=== PATIENT | female | born 2000 | race Caucasian/White ===

== ENCOUNTER 2022-05-10 23:47 | Emergency (ER) | payer OTHER, SELFPAY ==
[2022-05-11] VITALS (12 sets, daily range): BP systolic 109–124; BP diastolic 55–78; PULSE 41–61; RESP 16–18; TEMP 36.9; O2SAT 95–100; BMI 18.9
[2022-05-11] MEDS: 0.9 % SODIUM CHLORIDE 1000 ml 1,000 ML IV ×2 (00:20→00:55)
--- NOTE | 2022-05-11 00:28 | CRLHL7_ITS ---
For Patients: As a result of the Century Cures Act, medical imaging exams and procedure reports are released immediately into your electronic medical record. You may view this report before your referring provider. If you have questions, please contact your health care provider. INDICATION: [id number]. TECHNIQUE: Chest 1 views. COMPARISON: None. FINDINGS: Lungs: Normal lung volume. No consolidation. The tracheobronchial tree and hilar structures are unremarkable. Pleura: No pleural effusion or pneumothorax. Heart and Mediastinum: Normal heart size. The great vessels of the thorax are unremarkable. Bones: Sternotomy wires. IMPRESSION: No consolidation. Dictated by Andrew Acosta MD @ 05/11/2022 1:01:07 AM (Electronically Signed)
--- NOTE | 2022-05-11 00:31 | ED.WEAKNESS ---
HPI - Weakness General Chief complaint: Unspecified Complaint, Adult Stated complaint: Low heart rate, passing out Time Seen by Provider: 05/11/22 00:23 History of Present Illness HPI Narrative: Pt is a 21 year old [place] student who presents with bradycardia and heavy menses. Pt states that her current menses is particularly heavy. She states that she is not . No fever or chills. Pt has a history of POTS and take salt tablets. Pt has not had syncope recently. Pt has a long history of bradycardia and her pulse is generally in the 50's. Tonight it is in the 40's. No chest pain. Orthopnea or PND. Pain that she is having with her menses is in the low midline of the anterior pelvis. No other abd pain. Pt is not having any neurological symptoms. Pt has been out of her Lexapro for the past 5 days and feels that some of her symptoms may be related to withdrawal. Related Data Home Medications Medication Instructions Recorded Confirmed escitalopram oxalate 5 mg tablet 5 mg PO DAILY 05/11/22 05/11/22 Previous Rx's Medication Instructions Recorded escitalopram oxalate 5 mg tablet 5 mg PO DAILY Anxiety #30 tabs 05/11/22 (Lexapro) Allergies Allergy/AdvReac Type Severity Reaction Status Date / Time No Known Drug Allergies Allergy Verified 05/11/22 00:12 Review of Systems Status of ROS: Reports: 10 or more systems reviewed and unremarkable except as noted in History and below [facility] Medical History Anxiety Mitral regurgitation POTS (postural orthostatic tachycardia syndrome) Surgical History H/O congenital atrial septal defect (ASD) repair Social History Smoking Status: Never smoker How often do you have a drink containing alcohol: never AUDIT-C Alcohol total score: 0 Non-prescribed substance use: denies use Exam Narrative: Exam Narrative: EXAM GENERAL: Patient appears comfortable and well. EYES: No scleral icterus. ENT: Tympanic membranes and oropharynx normal. THYROID: no thyroid nodules or thyromegaly. LYMPH: No supraclavicular or cervical lymphadenopathy. SKIN: Visible skin seen during exam normal or with benign process only. EXT: No dependent lower extremity pedal edema. HEART: Bradycardic with distant heart tones LUNGS: Clear to auscultation bilaterally with no crackles or wheezes. ABD: Soft, non tender, non distended. PSYCH: Good eye contact, speech is not pressured. Const: Vital Signs, click to edit/add: Vital Signs - 24 hr 05/11/22 00:08 05/11/22 00:17 05/11/22 00:32 Temperature 98.5 F Pulse Rate 41 L 42 L Pulse Rate [Right Pulse Oximeter] 48 L Respiratory Rate 18 16 16 Blood Pressure 109/57 L 121/55 L Blood Pressure [Ri ght Upper Arm] 120/58 L Pulse Oximetry 95 95 100 Oxygen Delivery Me thod Room Air 05/11/22 00:49 05/11/22 01:02 05/11/22 01:17 Temperature Pulse Rate 49 L 53 L 54 L Pulse Rate [Right Pulse Oximeter] Respiratory Rate 16 16 16 Blood Pressure 113/60 115/70 121/58 L Blood Pressure [Ri ght Upper Arm] Pulse Oximetry 99 100 99 Oxygen Delivery Me thod 05/11/22 01:32 Temperature Pulse Rate 61 Pulse Rate [Right Pulse Oximeter] Respiratory Rate 16 Blood Pressure 121/56 L Blood Pressure [Ri ght Upper Arm] Pulse Oximetry 99 Oxygen Delivery Me thod Course Course Hospital Course: Pt seen and examined. EKG shows RBBB with Bradycardia upon my review. Troponin, D dimer, CBC, CMP, Chest X ray ordered. Vital Signs Vital signs: Initial Vital Signs Temperature 98.5 F 05/11/22 00:08 Temperature Source Temporal Artery Scan 05/11/22 00:08 Pulse Rate 48 L 05/11/22 00:08 Respiratory Rate 18 05/11/22 00:08 Blood Pressure 120/58 L 05/11/22 00:08 Blood Pressure Mean 78 05/11/22 00:08 Blood Pressure Position Supine 05/11/22 00:08 Pulse Oximetry 95 05/11/22 00:08 Oxygen Delivery Method 05/11/22 00:08 Vital Signs Temperature 98.5 F 05/11/22 00:08 Pulse Rate 48 L 05/11/22 00:08 Respiratory Rate 18 05/11/22 00:08 Blood Pressure 120/58 L 05/11/22 00:08 Pulse Oximetry 95 05/11/22 00:08 Oxygen Delivery Method 05/11/22 00:08 Temperature 98.5 F 05/11/22 00:08 Pulse Rate 61 05/11/22 01:32 Respiratory Rate 16 05/11/22 01:32 Blood Pressure 121/56 L 05/11/22 01:32 Pulse Oximetry 99 05/11/22 01:32 Oxygen Delivery Method 05/11/22 00:08 MDM - Weakness MDM Narrative Medical decision making narrative: Pt is a 21 year old with a complex cardiac history as well as POTS who comes in with worsening bradycardia. Pt is having her mensus and her pulse was in the 70's. Work up unremarkable. Pt given 2 liters of normal saline with marked improvement in her pulse rate. Pt now feeling well. She will be in contact with her EP Bi Developer. I also gave her my card if I can be of further assistance. Discharged to home. Differential Diagnosis Differential diagnosis: Likely acute myocardial infarction, anemia, hypoglycemia, hypothyroidism, rhabdomyolysis, sepsis and dehydration Lab Data Labs: Lab Results 05/11/22 05/11/22 05/11/22 Range/Units 00:02 00:02 00:02 WBC 7.26 (4.50-11.00) K/uL RBC 4.72 (4.00-5.20) m/uL Hgb 13.5 (12.0-16.0) gm/dL Hct 40.4 (33.0-51.0) % MCV 86 (80-100) fL MCH 29 (26-34) pg MCHC 33 (32-36) gm/dL RDW Coeff of Kurt 11.6 (11.5-15.5) % Plt Count 245 (140-440) K/uL Neut % (Auto) 62.6 (42.0-72.0) % Lymph % (Auto) 23.0 (20-44) % [place] % (Auto) 9.9 (0.0-11.0) % Eos % (Auto) 4.0 (0.0-7.0) % Baso % (Auto) 0.4 (0.0-3.0) % Neut # (Auto) 4.54 (1.7-7.0) K/uL Lymph # (Auto) 1.67 (0.90-2.90) K/uL [place] # (Auto) 0.70 (0.00-0.90) K/UL Eos # (Auto) 0.29 (0.00-0.50) K/uL Baso # (Auto) 0.03 (0.00-0.30) K/uL D-Dimer Quant (PE/DVT) < 0.27 (0.00-0.50) ug/ml Sodium 138 (135-149) mmol/L Potassium 3.3 L (3.6-5.1) mmol/L Chloride 109 (96-114) mmol/L Carbon Dioxide 22 (20-32) mmol/L BUN 12 (5-24) mg/dL Creatinine 0.6 (0.6-1.2) mg/dL Estimated Creat Clear 118.79 Estimated GFR 133 ml/min Glucose 101 (60-115) mg/dL Calcium 8.6 L (8.7-10.8) mg/dL Total Bilirubin 0.6 (0.1-1.5) mg/dL AST 22 (12-35) U/L ALT 16 (4-35) U/L Alkaline Phosphatase 54 (40-150) U/L Troponin I < 0.01 L (0.01-0.04) ng/mL Total Protein 7.0 (6.0-8.3) g/dL Albumin 4.2 (3.3-5.0) g/dL Amylase 104 H (18-89) U/L HCG, Qual (Negative) SARS-CoV-2 (PCR) (Negative) Influenza Type A (PCR) (Negative) Influenza Type B (PCR) (Negative) POC Troponin I (0.01-0.04) ng/ml 05/11/22 05/11/22 05/11/22 Range/Units 00:02 00:02 00:38 WBC (4.50-11.00) K/uL RBC (4.00-5.20) m/uL Hgb (12.0-16.0) gm/dL Hct (33.0-51.0) % MCV (80-100) fL MCH (26-34) pg MCHC (32-36) gm/dL RDW Coeff of Kurt (11.5-15.5) % Plt Count (140-440) K/uL Neut % (Auto) (42.0-72.0) % Lymph % (Auto) (20-44) % [place] % (Auto) (0.0-11.0) % Eos % (Auto) (0.0-7.0) % Baso % (Auto) (0.0-3.0) % Neut # (Auto) (1.7-7.0) K/uL Lymph # (Auto) (0.90-2.90) K/uL [place] # (Auto) (0.00-0.90) K/UL Eos # (Auto) (0.00-0.50) K/uL Baso # (Auto) (0.00-0.30) K/uL D-Dimer Quant (PE/DVT) (0.00-0.50) ug/ml Sodium (135-149) mmol/L Potassium (3.6-5.1) mmol/L Chloride (96-114) mmol/L Carbon Dioxide (20-32) mmol/L BUN (5-24) mg/dL Creatinine (0.6-1.2) mg/dL Estimated Creat Clear Estimated GFR ml/min Glucose (60-115) mg/dL Calcium (8.7-10.8) mg/dL Total Bilirubin (0.1-1.5) mg/dL AST (12-35) U/L ALT (4-35) U/L Alkaline Phosphatase (40-150) U/L Troponin I (0.01-0.04) ng/mL Total Protein (6.0-8.3) g/dL Albumin (3.3-5.0) g/dL Amylase (18-89) U/L HCG, Qual Negative (Negative) SARS-CoV-2 (PCR) Negative SARS-CoV-2 (Negative) Influenza Type A (PCR) Negative PCR FLU A (Negative) Influenza Type B (PCR) Negative PCR FLU B (Negative) POC Troponin I 0.00 L (0.01-0.04) ng/ml Discharge Plan Discharge Clinical Impression: Bradycardia Patient Disposition: Home, Self-Care Condition: Stable Instructions: Bradycardia (ED) Additional Instructions: Continue current medications Lexapro sent in with refills to [facility] Follow up by phone with EP Bi Developer Activity Level: No Restrictions Discharge Diet: Regular Prescriptions: New escitalopram oxalate [Lexapro] 5 mg tablet 5 mg PO DAILY Qty: 30 2RF No Action escitalopram oxalate 5 mg tablet 5 mg PO DAILY Label Comments: TAKE 1 TABLET BY MOUTH EVERY DAY Stand Alone Forms: [employer] Info Instructions
[2022-05-11 00:54] LABS: Albumin* 4.2 g/dL (3.3-5.0); Chloride* 109 mmol/L (96-114); Potassium* 3.3 mmol/L (3.6-5.1); Sodium* 138 mmol/L (135-149)
[2022-05-11 00:57] LABS: Alanine Aminotransferase* 16 U/L (4-35); Alkaline Phosphatase* 54 U/L (40-150); Amylase* 104 U/L (18-89); Aspartate Amino Transferase* 22 U/L (12-35); Bilirubin Total* 0.6 mg/dL (0.1-1.5); Blood Urea Nitrogen* 12 mg/dL (5-24); Carbon Dioxide* 22 mmol/L (20-32); Creatinine* 0.6 mg/dL (0.6-1.2); Est. Creatinine Clearance* 118.79; Estimated Glomerular Filt Rate 133 ml/min; Glucose* 101 mg/dL (60-115)
[2022-05-11 00:58] LABS: Calcium* 8.6 mg/dL (8.7-10.8)
[2022-05-11 01:00] LABS: D Dimer Quantitative* < 0.27 ug/ml (0.00-0.50)
[2022-05-11 01:13] LABS: Troponin I* < 0.01 ng/mL (0.01-0.04)
[2022-05-11 01:21] LABS: HCG Qualitative Serum* Negative (Negative)
[2022-05-11 01:30] LABS: Basophils Absolute Auto 0.03 K/uL (0.00-0.30); Basophils Percent Auto 0.4 % (0.0-3.0); Eosinophils Absolute Auto 0.29 K/uL (0.00-0.50); Hematocrit 40.4 % (33.0-51.0); Hemoglobin* 13.5 gm/dL (12.0-16.0); Immature Granulocytes Abs Auto 0.01 K/uL (0.00-0.30); Immature Granulocytes Pct Auto 0.1 %; Lymphocytes Absolute Auto 1.67 K/uL (0.90-2.90); Mean Corpuscular HGB Conc 33 gm/dL (32-36); Mean Corpuscular Hemoglobin 29 pg (26-34); Mean Corpuscular Volume 86 fL (80-100); Monocytes Percent Auto 9.9 % (0.0-11.0); Neutrophils Absolute Auto 4.54 K/uL (1.7-7.0); Neutrophils Percent Auto 62.6 % (42.0-72.0); Platelet Count* 245 K/uL (140-440); RDW Coefficient of Variation % 11.6 % (11.5-15.5); Red Blood Count 4.72 m/uL (4.00-5.20); White Blood Count* 7.26 K/uL (4.50-11.00)
[2022-05-11 01:33] LABS: Slide Review Reflex No
[2022-05-11 01:39] LABS: PCR FLU A Negative PCR FLU A (Negative); PCR FLU B Negative PCR FLU B (Negative)
[2022-05-11 01:47] LABS: SARS PCR* Negative SARS-CoV-2 (Negative)
== END 2022-05-11 02:33 | disposition home or self-care (01) ==
PROVIDERS: Emergency Provider Internal Medicine
DX: R00.1 Bradycardia, unspecified (principal)
CPT/HCPCS: 36415; 71045; 80053; 82150; 84484; 84703; 85025; 85379; 87631; 93005; 94761; 99283; 99284; 99285; J7030

== ENCOUNTER 2024-07-10 22:48 | Emergency (ER) | payer OTHER, SELFPAY ==
[2024-07-10 22:59] VITALS: BP 134/87; PULSE 61; RESP 16; TEMP 37.5; O2SAT 96; BMI 20.1
[2024-07-11 00:29] LABS: Amphetamine Screen Urine Negative (Negative); Barbiturate Screen Urine Negative (Negative); Benzodiazepines Screen Urine Negative (Negative); Cannabinoid Screen Urine Negative (Negative); Cocaine Screen Urine Negative (Negative); Methadone Screen Urine Negative (Negative); Methamphetamines Screen Urine Negative (Negative); Opiate Screen Urine Negative (Negative); Oxycodone Screen Urine Negative (Negative); Phencyclidine Screen Urine Negative (Negative); Tricyclic Antidepressant Urine Negative (Negative)
[2024-07-11 00:31] LABS: Basophils Absolute Auto 0.03 K/uL (0.00-0.30); Basophils Percent Auto 0.6 % (0.0-3.0); Eosinophils Absolute Auto 0.21 K/uL (0.00-0.50); Eosinophils Percent Auto 4.1 % (0.0-7.0); Hematocrit 41.1 % (33.0-51.0); Hemoglobin* 13.7 gm/dL (12.0-16.0); Lymphocytes Absolute Auto 1.46 K/uL (0.90-2.90); Lymphocytes Percent Auto 28.3 % (20-44); Mean Corpuscular HGB Conc 33 gm/dL (32-36); Mean Corpuscular Hemoglobin 28 pg (26-34); Mean Corpuscular Volume 85 fL (80-100); Monocytes Percent Auto 10.3 % (0.0-11.0); Neutrophils Absolute Auto 2.92 K/uL (1.7-7.0); Neutrophils Percent Auto 56.7 % (42.0-72.0); Platelet Count* 228 K/uL (140-440); RDW Coefficient of Variation % 12.2 % (11.5-15.5); Red Blood Count 4.83 m/uL (4.00-5.20); White Blood Count* 5.15 K/uL (4.50-11.00)
[2024-07-11 00:38] LABS: Ur HCG Qualitative* Negative (Negative)
[2024-07-11 00:55] LABS: Slide Review Reflex No
[2024-07-11 00:58] LABS: Albumin* 4.7 g/dL (3.3-5.0); Chloride* 105 mmol/L (96-114)
[2024-07-11 00:59] LABS: Potassium* 3.1 mmol/L (3.6-5.1); Sodium* 140 mmol/L (135-149)
[2024-07-11 01:01] LABS: Anion Gap 11 mEq/L (7-15); Blood Urea Nitrogen* 24 mg/dL (5-24); Carbon Dioxide* 24 mmol/L (20-32); Creatinine* 0.9 mg/dL (0.5-1.5); Est. Creatinine Clearance* 82.14; Estimated Glomerular Filt Rate 93 ml/min
[2024-07-11 01:02] LABS: Alanine Aminotransferase* 14 U/L (4-35); Alkaline Phosphatase* 61 U/L (40-150); Aspartate Amino Transferase* 26 U/L (12-35); Bilirubin Direct* 0.3 mg/dL (0.0-0.5); Bilirubin Total* 0.6 mg/dL (0.1-1.5); Calcium* 9.3 mg/dL (8.4-10.6); Glucose* 129 mg/dL (60-115); Total Protein* 7.3 g/dL (6.0-8.3)
[2024-07-11 01:07] LABS: Acetaminophen* < 10.0 ug/mL (10.0-30.0); Ethanol* < 0.01 % (0.01-0.03); Salicylate* < 1.0 mg/dL (1.0-10)
--- NOTE | 2024-07-11 01:14 | ED_ITS ---
HPI - General Adult General Chief complaint: Psychiatric Problem/Disorder Stated complaint: mental health Time Seen by Provider: 07/11/24 01:15 History of Present Illness HPI narrative: patient with hx of bipolar type 1 and depression and is currently being assessed for bpd. for the past 2 weeks has been having increasing stress and anxiety. states she is feeling overwhelmed, states I dont recognize pictures of myself, nothing feels real, this doesnt feel real states she has been having episodes of feeling like she cant trust herself to not self herself, hx of self-harm behaviors of cutting herself . tearful in triage and states I feel like I am not here, I look at pictures of myself, but I feel like i am not in my right body states she self-harms typically without the intent to kill herself but last night while cutting herself had thoughts of cutting wrists in an attempt to kill herself . patient sees psych at health services at [facility]. hx of being hospitalized for mental health with manic episodes in February 2023 and again while studying abroad in 2023 hospitalized for depression. [facility] student, from [facility] [place] originally. 24-year-old young woman presenting to the emergency department as recommended by friend following increasing self-harm behavior. Seems particularly bothered by feeling that things do not seem real. Says she does not really recognize her family and startles herself looking at herself in the mirror. Is just worried about what might be going on whether not might be related to her bipolar disorder. She is asking for help to understand what is going on. Becomes tearful with this concern. Also has episodes where she has intense desire to get out of her own skin somehow to tear the skin off of her body and be destructive. Denies hallucinations. No substance use. On exam I am noting larger deeper cuts on her left thigh from few days ago have scabbed over. None of the ones done within the last 30 hours or so will need repair; all being intradermal and only a couple slightly gapping. She does how ever indicate that she has had thoughts of cutting herself more or more deeply with possibly killing herself in this manner. Has been sleeping well and just feels like she really needs to sleep now. Asking for a particular blanket she had brought with her. Sees a psychologist/therapist at her college here locally every other week. Related Data Home Medications ?Medication ?Instructions ?Recorded ?Confirmed hydroxyzine HCl 10 mg tablet 5 - 10 mg PO Q8H PRN anxiety 07/10/24 07/11/24 lamotrigine 150 mg tablet 150 mg PO DAILY 07/10/24 07/10/24 lamotrigine 25 mg tablet 50 mg PO DAILY 07/10/24 07/10/24 lurasidone 60 mg tablet 60 mg PO QPM 07/10/24 07/10/24 Allergies Allergy/AdvReac Type Severity Reaction Status Date / Time No Known Drug Allergies Allergy Verified 05/11/22 00:12 Review of Systems Status of ROS: Reports: 6 or more systems reviewed and unremarkable except as noted in History and below [facility] Medical History Bradycardia ?R00.1 - Bradycardia, unspecified (ICD-10) 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 tricuspid insufficiency (ICD-10) 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 (ICD-10) Complete right bundle branch block ?I45.10 - Unspecified right bundle-branch block (ICD-10) Depression ?F32.A - Depression, unspecified (ICD-10) Anxiety ?F41.9 - Anxiety disorder, unspecified (ICD-10) Mitral regurgitation ?I34.0 - Nonrheumatic mitral (valve) insufficiency (ICD-10) POTS (postural orthostatic tachycardia syndrome) ?G90.A - Postural orthostatic tachycardia syndrome [POTS] (ICD-10) Surgical History H/O congenital atrial septal defect (ASD) repair ?Z87.74 - Personal history of (corrected) congenital malformations of heart and circulatory system (ICD-10) Social History Smoking Status: Never smoker How often do you have a drink containing alcohol: never AUDIT-C Alcohol total score: 0 Non-prescribed substance use: denies use Exam Narrative: Exam Narrative: Pleasant. Wearing paper scrubs. Is tearful during our conversation. Appears quite tired. Breathing easily. Mood is sad and affect congruent. Speech isn't pressured or slurred. Cranial nerves 2-12 intact. At times asking if maybe she can just go home but not making move to do so. Heart in regular rate and rhythm with 2/6 systolic murmur. Extensive fresh cuts as noted above over bilateral forearms and bilateral thighs. Old scarring at the left volar wrist consistent with old marvin. Const: Vital Signs, click to edit/add: Vital Signs - 24 hr 07/10/24 22:59 07/11/24 03:00 07/11/24 03:00 Temperature 99.5 F 99 F Pulse Rate [Pulse Oximeter] 61 70 Respiratory Rate 16 16 Blood Pressure [Ri ght Upper Arm] 134/87 115/54 L Pulse Oximetry 96 98 Oxygen Delivery Me thod Room Air Room Air 07/11/24 06:58 07/11/24 08:50 Temperature 98.1 F Pulse Rate [Pulse Oximeter] 149 H 50 L Respiratory Rate 16 Blood Pressure [Ri ght Upper Arm] 103/51 L Pulse Oximetry 91 98 Oxygen Delivery Me thod Room Air Room Air Documenting provider has reviewed patient's vital signs: yes Course Vital Signs Vital signs: Initial Vital Signs Temperature 99.5 F 07/10/24 22:59 Temperature Source Temporal Artery Scan 07/10/24 22:59 Pulse Rate 61 07/10/24 22:59 Respiratory Rate 16 07/10/24 22:59 Blood Pressure 134/87 07/10/24 22:59 Blood Pressure Mean 102 07/10/24 22:59 Blood Pressure Position Sitting 07/10/24 22:59 Pulse Oximetry 96 07/10/24 22:59 Oxygen Delivery Method Room Air 07/10/24 22:59 Vital Signs Temperature 99.5 F 07/10/24 22:59 Pulse Rate 61 07/10/24 22:59 Respiratory Rate 16 07/10/24 22:59 Blood Pressure 134/87 07/10/24 22:59 Pulse Oximetry 96 07/10/24 22:59 Oxygen Delivery Method Room Air 07/10/24 22:59 Temperature 98.1 F 07/11/24 08:50 Pulse Rate 50 L 07/11/24 08:50 Respiratory Rate 16 07/11/24 08:50 Blood Pressure 103/51 L 07/11/24 08:50 Pulse Oximetry 98 07/11/24 08:50 Oxygen Delivery Method Room Air 07/11/24 08:50 Medications Administered Medications: Discontinued Medications Generic Name Dose Route Start Last Admin Trade Name Freq PRN Reason Stop Dose Admin Lurasidone 60 Mg 60 mg 07/11/24 01:12 07/11/24 01:20 PO 07/11/24 01:13 60 mg ONCE ONE Administration Medical Decision Making MDM Narrative Medical decision making narrative: She is asking for help at the same time just wants to be home. Escalating cutting and depression of dissociation of sorts is concerning. I have asked [facility] for initial intake interview and Alok has asked to speak with psychiatrist. Did speak with psychiatrist Dr. Perez who would recommend hospitalization. Would consider Alok holdable. They will be looking for placement. I would consider Alok medically cleared for psychiatric hospitalization with escalating self-harming behavior, passive suicidal ideation and dissociation. I anticipate her sleeping here in the emergency department overnight. Have located a psychiatric bed placement at [facility]. Anticipating transport later today. Did rest comfortably overnight. No events. Pulse has been low but consistent with her description of typical. Have given morning dose of lamotrigine. Medical Records Medical records reviewed: Yes I reviewed the patient's medical records Lab Data Lab results reviewed: Yes I reviewed the patient's lab results Labs: Lab Results 07/11/24 07/11/24 07/11/24 Range/Units 00:10 00:25 00:39 WBC 5.15 (4.50-11.00) K/uL RBC 4.83 (4.00-5.20) m/uL Hgb 13.7 (12.0-16.0) gm/dL Hct 41.1 (33.0-51.0) % MCV 85 (80-100) fL MCH 28 (26-34) pg MCHC 33 (32-36) gm/dL RDW Coeff of Kurt 12.2 (11.5-15.5) % Plt Count 228 (140-440) K/uL Neut % (Auto) 56.7 (42.0-72.0) % Lymph % (Auto) 28.3 (20-44) % [place] % (Auto) 10.3 (0.0-11.0) % Eos % (Auto) 4.1 (0.0-7.0) % Baso % (Auto) 0.6 (0.0-3.0) % Neut # (Auto) 2.92 (1.7-7.0) K/uL Lymph # (Auto) 1.46 (0.90-2.90) K/uL [place] # (Auto) 0.50 (0.00-0.90) K/UL Eos # (Auto) 0.21 (0.00-0.50) K/uL Baso # (Auto) 0.03 (0.00-0.30) K/uL Abs Immat Gran (auto) 0.00 (0.00-0.30) K/uL Imm/Tot Granulo (auto) 0.0 % Sodium 140 (135-149) mmol/L Potassium 3.1 L (3.6-5.1) mmol/L Chloride 105 (96-114) mmol/L Carbon Dioxide 24 (20-32) mmol/L Anion Gap 11 (7-15) mEq/L BUN 24 (5-24) mg/dL Creatinine 0.9 (0.5-1.5) mg/dL Estimated Creat Clear 82.14 Estimated GFR 93 ml/min Glucose 129 H (60-115) mg/dL Calcium 9.3 (8.4-10.6) mg/dL Total Bilirubin 0.6 (0.1-1.5) mg/dL Direct Bilirubin 0.3 (0.0-0.5) mg/dL AST 26 (12-35) U/L ALT 14 (4-35) U/L Alkaline Phosphatase 61 (40-150) U/L Total Protein 7.3 (6.0-8.3) g/dL Albumin 4.7 (3.3-5.0) g/dL TSH 1.350 (0.270-4.20) uIU/mL Urine HCG, Qual (Negative) Salicylates < 1.0 L (1.0-10) mg/dL Urine Opiates Screen Negative (Negative) Ur Oxycodone Screen Negative (Negative) Urine Methadone Screen Negative (Negative) Acetaminophen < 10.0 (10.0-30.0) ug/mL Ur Barbiturates Screen Negative (Negative) U Tricyclic Antidepress Negative (Negative) Ur Phencyclidine Scrn Negative (Negative) Ur Amphetamines Screen Negative (Negative) U Methamphetamines Scrn Negative (Negative) U Benzodiazepines Scrn Negative (Negative) Urine Cocaine Screen Negative (Negative) U Marijuana (THC) Screen Negative (Negative) Ur Drug Screen Comment See Note Ethyl Alcohol < 0.01 (0.01-0.03) % SARS-CoV-2 (PCR) Negative SARS-CoV-2 (Negative) 07/11/24 Range/Units Unknown WBC (4.50-11.00) K/uL RBC (4.00-5.20) m/uL Hgb (12.0-16.0) gm/dL Hct (33.0-51.0) % MCV (80-100) fL MCH (26-34) pg MCHC (32-36) gm/dL RDW Coeff of Kurt (11.5-15.5) % Plt Count (140-440) K/uL Neut % (Auto) (42.0-72.0) % Lymph % (Auto) (20-44) % [place] % (Auto) (0.0-11.0) % Eos % (Auto) (0.0-7.0) % Baso % (Auto) (0.0-3.0) % Neut # (Auto) (1.7-7.0) K/uL Lymph # (Auto) (0.90-2.90) K/uL [place] # (Auto) (0.00-0.90) K/UL Eos # (Auto) (0.00-0.50) K/uL Baso # (Auto) (0.00-0.30) K/uL Abs Immat Gran (auto) (0.00-0.30) K/uL Imm/Tot Granulo (auto) % Sodium (135-149) mmol/L Potassium (3.6-5.1) mmol/L Chloride (96-114) mmol/L Carbon Dioxide (20-32) mmol/L Anion Gap (7-15) mEq/L BUN (5-24) mg/dL Creatinine (0.5-1.5) mg/dL Estimated Creat Clear Estimated GFR ml/min Glucose (60-115) mg/dL Calcium (8.4-10.6) mg/dL Total Bilirubin (0.1-1.5) mg/dL Direct Bilirubin (0.0-0.5) mg/dL AST (12-35) U/L ALT (4-35) U/L Alkaline Phosphatase (40-150) U/L Total Protein (6.0-8.3) g/dL Albumin (3.3-5.0) g/dL TSH (0.270-4.20) uIU/mL Urine HCG, Qual Negative (Negative) Salicylates (1.0-10) mg/dL Urine Opiates Screen (Negative) Ur Oxycodone Screen (Negative) Urine Methadone Screen (Negative) Acetaminophen (10.0-30.0) ug/mL Ur Barbiturates Screen (Negative) U Tricyclic Antidepress (Negative) Ur Phencyclidine Scrn (Negative) Ur Amphetamines Screen (Negative) U Methamphetamines Scrn (Negative) U Benzodiazepines Scrn (Negative) Urine Cocaine Screen (Negative) U Marijuana (THC) Screen (Negative) Ur Drug Screen Comment Ethyl Alcohol (0.01-0.03) % SARS-CoV-2 (PCR) (Negative) Discharge Plan Discharge Clinical Impression: Self-harming behavior, Passive suicidal ideations, Dissociation Patient Disposition: Xfer Psychiatric Hosp Condition: Stable Prescriptions: No Action lamotrigine 150 mg tablet 150 mg PO DAILY lamotrigine 25 mg tablet 50 mg PO DAILY hydroxyzine HCl 10 mg tablet 5 - 10 mg PO Q8H PRN (Reason: anxiety) lurasidone 60 mg tablet 60 mg PO QPM Follow Up/Referrals: Provider,Not a Local [Primary Care Provider] - Stand Alone Forms: [employer] Info Instructions
[2024-07-11 01:20] LABS: SARS PCR* Negative SARS-CoV-2 (Negative)
--- OUTSIDE RECORDS SUMMARY | 2024-07-11 02:29 | XMS_ITS | Encounter Summary ---
Author Organization [facility] Address [address] [place] [address] Care Team Providers Care Herbicide Service Sales Representative Name Role Phone Adrienne Cardona MD Primary Care Provider [phone] Reason for Referral * Consultation (Routine) - Closed Specialty Diagnoses / Procedures Referred By Contact Referred To Contact Cardiothoracic Surgery Diagnoses Atrioventricular canal (AVC), transitional Bradycardia Adrienne Cardona MD [address] [employer] [address] Phone: tel: fax: Referral ID Status Reason Start Date Expiration Date V isits Requested Visits Authorized [id number] Closed Specialty Services Required 03/25/2013 03/25/2014 7 7 Encounter Details Date Type Department Care Team (Latest Contact Info) Description 03/25/2013 Community Orders [facility] Adrienne Cardona MD [address] [employer] [address] [address] Social History Tobacco Use Types Packs/Day Years Used Date Smoking Tobacco: Never Smokeless Tobacco: Never Alcohol Use Standard Drinks/Week Comments Not Asked 0 (1 standard drink = 0.6 oz pur e alcohol) Comments Unknown Sex and Gender Information Value Date Recorded Sex Assigned at Not on file Legal Sex Female 8:02 AM EST Gender Identity Not on file Sexual Orientation Not on file documented as of this encounter Plan of Treatment Scheduled Referrals Name Type Priority Associated Diagnoses Order Schedule REFERRAL TO CARDIOTHORACIC SURGERY Outpatient Referral Routine Atrioventricular canal (AVC), transitional Bradycardia Ordered: 03/25/2013 documented as of this encounter Visit Diagnoses Diagnosis Atrioventricular canal (AVC), transitional Other congenital endocardial cushion defect Bradycardia Other specified cardiac dysrhythmias documented in this encounter Additional Health Concerns Infection Onset Date Last Indicated Resolved Time COVID-19 RESULTS PENDING 12/24/2019 12/24/2019 12:47 AM EDT documented as of this encounter Care Teams Herbicide Service Sales Representative Relationship Specialty Start Date End Date Adrienne Cardona MD [address] [place] [address] PCP - General 04/25/07 documented as of this encounter
--- OUTSIDE RECORDS SUMMARY | 2024-07-11 02:29 | XMS_ITS | Continuity of Care Document ---
Author Organization [facility] Address [address] [place] [address] Phone [phone] Care Team Providers Care Senior C Software Engineer Name Role Phone Adrienne Cardona M.D. Care Team Information Recei kylie Unavailable None Care Team Information Mash Preparatory Operator U navailable Payers Date Identification Numbers Payment Provider S ubscriber Policy Number: [id number] Khanh BEST/BS Martín Palacios Group Number: [id number] [id number] PayID: [id number] [place] [address] Allergies and adverse reactions Description No Known Drug Allergies Assessments Date Code Description Provider 01/01/2010 841.9 Sprains & Strains Elbow & Fo rearm Unspec Terrance Meng M.D.
--- OUTSIDE RECORDS SUMMARY | 2024-07-11 02:29 | XMS_ITS | Clinical Summary ---
Author Organization [facility] Address [address] [place] [address] Care Team Providers Care Professor Of Public Administration Name Role Phone Luis Felipe Briseno CNP Primary Care Provider [phone] Allergies Active Allergy Reactions Criticality Noted Date Comments Tea Tree Oil Hives,Rash Low 07/07/2016 Medications lithium (LITHOBID) 300 MG CR tablet Take 1 (one) tablet (300 mg total) by mouth at bedtime TAKE 1 TABLET BY MOUTH EVERYDAY AT BEDTIME . 08/05/19 24 Active lurasidone (LATUDA) 40 mg Tab TAKE 1 TABLET BY MOUTH EVERY NIGHT AT BEDTIME WITH A 350 CALORIE SNACK FOR ABSORPTION 08/06/19 24 Active magic mouthwash susp equal parts viscous lidocaine 2%, diphenhydramine 12.5mg/5mL, maalox [id number]/5m L Swish and swallow every 6 hours as needed for pain . 300 mL 08/20/19 24 Active Social History Tobacco Use Types Packs/Day Years Used Date Smoking Tobacco: Never Smokeless Tobacco: Never Tobacco Cessation:Counseling Given: Not Answered Alcohol Use Standard Drinks/Week Comments Never 0 (1 standard drink = 0.6 oz pur e alcohol) Comments Unknown Sex and Gender Information Value Date Recorded Sex Assigned at Not on file Legal Sex Female 10:43 AM EDT Gender Identity Not on file Sexual Orientation Not on file Last Filed Vital Signs Vital Sign Reading Time Taken Comments Blood Pressure 111/56 08/20/2023 4:35 PM EDT Pulse 58 08/20/2023 4:27 PM EDT Temperature 37.6 C (99.7 F) 08/20/2023 1:49 PM EDT Respiratory Rate 25 08/20/2023 4:27 PM EDT Oxygen Saturation 97% 08/20/2023 4:27 PM EDT Inhaled Oxygen Concentration - - Weight 52.2 kg (115 lb) 08/20/2023 1:49 PM EDT Height 162.6 cm (5' 4) 08/20/2023 1:49 PM EDT Body Mass Index 19.74 08/20/2023 1:49 PM EDT Plan of Treatment Health Maintenance Due Date Last Done Comments Depression Screening/Follow-Up (PHQ-2/9) 2014 HIV Screening 2017 HPV Vaccines (1 - 3-dose series) 2017 Hepatitis C Screening 2020 COVID-19 Vaccine ( season) 2023 03/08/2022, 03/06/2021, 05/23/2020, Additional history exists Chlamydia Screening 10/08/2024 10/09/2023 Wellness Visit 10/08/2024 10/09/2023, 08/0 03/2023, 07/04/2022, Additional history exists Influenza Vaccine (Season Ended) 2024 05/12/2019, 05/12/2019, 12/08/2015, Additional history exists Pap Smear 10/08/2026 10/09/2023 Tetanus: Every 10yrs 07/04/2032 07/04/2022, 08/23/19 15 Pneumococcal Vaccine: Ped or At-Risk Aged Out 09/22/2008, 06/18/2004 No longer eligibl e based on patient's age to complete this topic Insurance [employer] P[employer] Care Teams Professor Of Public Administration Relationship Specialty Start Date End Date Luis Felipe Briseno CNP PCP - General Nurse Practitioner 08/20/23
--- OUTSIDE RECORDS SUMMARY | 2024-07-11 02:29 | XMS_ITS | Encounter Summary ---
Author Organization [facility] Address [address] [place] [address] Care Team Providers Care Chemical Production Technician Name Role Phone Adrienne Cardona MD Primary Care Provider [phone] Encounter Details Date Type Department Care Team (Late st Contact Info) Description 06/25/2007 [facility] [address] [place] [address] Adrienne Cardona MD [address] [facility] [address] [place] [address] Social History Tobacco Use Types Packs/Day Years Used Date Smoking Tobacco: Never Assessed Comments Unknown Sex and Gender Information Value Date Recorded Sex Assigned at Not on file Legal Sex Female 8:02 AM EST Gender Identity Not on file Sexual Orientation Not on file documented as of this encounter Plan of Treatment Not on file documented as of this encounter Procedures Procedure Name Priority Date/Time Associated Diagnosis Comments FUNGAL CULTURE, NOCARDIA Routine 06/25/2007 2:27 PM EDT FUNGAL CULTURE, MISCELLANEOUS Routine 06/25/2007 2:27 PM EDT FUNGAL CULTURE, DERMATOPHYTE Routine 06/25/2007 2:27 PM EDT documented in this encounter Results * FUNGAL CULTURE, DERMATOPHYTE (06/25/2007 2:27 PM EDT) SPECIMEN DESCRIPTION Toe nail [facility] SPECIAL REQUEST None [facility] CULTURE RESULT Trichophyton rubrum isolated [facility] CULTURE RESULT Supplementary report: Previously reported as dermatophyte. [facility] REPORT STATUS Final [id number] [facility] 06/25/2007 2:27 PM EDT 06/26/2007 8:00 AM EDT us Adrienne Cardona MD MICRO/VIROLOGY ORDERABLES Edit ed Performing Organization Address [facility]/ZIP Co de Phone Number [facility] [address] [place] [address], [place] [phone] * FUNGAL CULTURE, NOCARDIA (06/25/2007 2:27 PM EDT) SPECIMEN DESCRIPTION Toe nail [facility] SPECIAL REQUEST None [facility] CULTURE RESULT Specimen inappropriat e, please recollect. [facility] REPORT STATUS Final 06/26/2007 [facility] 06/25/2007 2:27 PM EDT 06/25/2007 8:29 PM EDT us Adrienne Cardona MD MICRO/VIROLOGY ORDERABLES Livia l Result Performing Organization Address [facility] Co de Phone Number [facility] [address] [place] [address], [place] [phone] * FUNGAL CULTURE, MISCELLANEOUS (06/25/2007 2:27 PM EDT) SPECIMEN DESCRIPTION Toe nail [facility] SPECIAL REQUEST R/O NOCARDIA [facility] FORREST/CALCOFLUOR PREP Test not performed. [facility] CULTURE RESULT Ordered in error, clerical error. [facility] REPORT STATUS Final 06/26/2007 [facility] 06/25/2007 2:27 PM EDT 06/25/2007 7:06 PM EDT us Adrienne Cardona MD MICRO/VIROLOGY ORDERABLES Livia l Result Performing Organization Address [facility] Co de Phone Number [facility] [address] [place] [address], [place] [phone] documented in this encounter Visit Diagnoses Not on filedocumented in this encounter Additional Health Concerns Infection Onset Date Last Indicated Resolved Time COVID-19 RESULTS PENDING 12/24/2019 12/24/2019 12:47 AM EDT documented as of this encounter Care Teams Chemical Production Technician Relationship Specialty Start Date End Date Adrienne Cardona MD [address] [place] [id number] PCP - General 04/25/07 documented as of this encounter
--- OUTSIDE RECORDS SUMMARY | 2024-07-11 02:29 | XMS_ITS | Encounter Summary ---
Author Organization [facility] Address [address] [place] [address] Care Team Providers Care Program Writer Name Role Phone Adrienne Cardona MD Primary Care Provider [phone] Encounter Details Date Type Department Care Team (Late st Contact Info) Description 03/29/2008 [facility] [address] [place] [address] Adrienne Cardona MD [address] [facility] [address] [place] [address] Social History Tobacco Use Types Packs/Day Years [...] Procedure Name Priority Date/Time Associated Diagnosis Comments MONO SCREEN WITH EBV IF NEGATIVE Routine 03/29/2008 11:00 AM EST EBV ANTIBODY TITER PROFILE Routine 03/29/2008 11:00 AM EST CULTURE, BLOOD-BONE MARROW Routine 03/29/2008 11:00 AM EST CBC W/AUTOMATED DIFF, REFLEX TO MANUAL Routine 03/29/2008 11:00 AM EST documented in this encounter Results * EBV ANTIBODY PROFILE (03/29/2008 11:00 AM EST) EBV-VCA ANTIBODY, IGG TITER Negative NEG Titer [facility] Comment: <1:10 EBV-VCA ANTIBODY, IGM TITER Negative NEG Titer [facility] Comment: <1:10 EBV-NA ANTIBODY, IGG TITER Negative NEG Titer [facility] Comment: <1:10 EBV-INTERPRET ATION This serologic profile suggests neither past nor present EBV infection. [facility] 03/29/2008 11:0 0 AM EST 03/29/2008 2:58 PM EST us Adrienne Cardona MD IMMUNOLOGY/SEROLOGY ORDERABLES Final Result Performing Organization Address [facility]/ZIP Co de Phone Number [facility] [address] [place] [address], * MONO SCREEN WITH EBV IF NEGATIVE (03/29/2008 11:00 AM EST) Pathologist [facility] MONO SCREEN WITH EBV IF NEGATIVE Negative NEG [facility] 03/29/2008 11:0 0 AM EST 03/29/2008 2:58 PM EST us Adrienne Cardona MD IMMUNOLOGY/SEROLOGY ORDERABLES Final Result Performing Organization Address [facility] de Phone Number [facility] [address] [place] [address], * (ABNORMAL) CBC W/AUTOMATED DIFF, REFLEX TO MANUAL (03/29/2008 11:00 AM EST) Pathologist [facility] WBC 5.5 5.5 - 15.5 K/cu mm [facility] RBC 4.54 3.9 - 5.3 M/cu mm [facility] HEMOGLOBIN 12.3 11.5 - 13.5 g/dL [facility] HEMATOCRIT 36.9 34 - 40 % [facility] MCV 81.3 75 - 88 fL [facility] MCH 27.1 24 - 30 pg [facility] MCHC 33.3 31.0 - 37.0 % [facility] RDW 13.1 10 - 14.1 % [facility] PLATELET COUNT 248 140 - 440 K/cu mm [facility] MPV 9.3 9.3 - 13.0 fL [facility] BAND 3(L) 5 - 11 % [facility] SEGMENTED NEUTROPHIL 65(H) 23 - 45 % [facility] LYMPHOCYTE 26(L) 35 - 65 % [facility] MONOCYTE 6 2 - 8 % [facility] DIFF TYPE Manual [facility] PLATELET ESTIMATE Adequate [facility] 03/29/2008 11:0 0 AM EST 03/29/2008 2:58 PM EST us Adrienne Cardona MD HEMATOLOGY ORDERABLES Final Re sult Performing Organization Address [facility]/ZIP Co de Phone Number [facility] [address] [place] [address], [place] [phone] * CULTURE, BLOOD-BONE MARROW (03/29/2008 11:00 AM EST) SPECIMEN DESCRIPTION Blood [facility] SPECIAL REQUEST None [facility] CULTURE RESULT No growth 5 days [facility] REPORT STATUS Final [id number] [facility] 03/29/2008 11:0 0 AM EST 03/29/2008 2:54 PM EST us Adrienne Cardona MD MICRO/VIROLOGY ORDERABLES Livia l Result Performing Organization Address [facility] de Phone Number [facility] [address] [place] [address], [place] [phone] documented in this encounter Visit Diagnoses Not on filedocumented in this encounter Additional Health Concerns Infection Onset Date Last Indicated Resolved Time COVID-19 RESULTS PENDING 12/24/2019 12/24/2019 12:47 AM EDT documented as of this encounter Care Teams Program Writer Relationship Specialty Start Date End Date Adrienne Cardona MD [address] [facility] [address] [place] [address] PCP - General 04/25/07 documented as of this encounter
--- OUTSIDE RECORDS SUMMARY | 2024-07-11 02:29 | XMS_ITS | Encounter Summary ---
Author Organization [facility] Address [address] [place] [address] Care Team Providers Care Global Cmo Name Role Phone Adrienne Cardona MD Primary Care Provider Encounter Details Date Type Department Care Team (Late st Contact Info) Description 03/25/2008 Office Visit [facility] [address] [place] [address] [phone] Estelle Low MD [address] [place] [id number] Social History Tobacco Use Types Packs/Day Years [...] Procedure Name Priority Date/Time Associated Diagnosis Comments XR CHEST - PA AND LATERAL Routine 03/25/2008 1:11 PM EST documented in this encounter Results * XRAY CHEST PA/LAT (03/25/2008 1:11 PM EST) Anatomical Region Laterality Modality Chest Computed Radiogr aphy 03/25/2008 1:11 PM EST Impressions 03/25/2008 1:23 PM EST dag/Dictated: 03/25/08 1318 hours CHEST 03/25/08 CLINICAL HISTORY: ASD repair, now with chest pain and fever. FINDINGS: Two views of the chest are compared with the previous examination of April. The lungs are clear. No consolidation or effusion. Unchanged mild cardiomegaly. The pulmonary vascularity appears normal and symmetric. There may be some mild airways thickening indicative of airways disease. Sternal wires are intact. No pneumothorax or pneumomediastinum. IMPRESSION: Minimal airways disease without focal pneumonia. Final Radiologist: Saurabh Herrera MD Verified By: Saurabh Herrera MD 03/25/08 4:19 pm Transcribed by: AYAAN 03/25/08 1:56 pm S Mirza Low MD DIAGNOSTIC IMAGING ORDERABLES Final Result documented in this encounter Visit Diagnoses Not on filedocumented in this encounter Additional Health Concerns Infection Onset Date Last Indicated Resolved Time COVID-19 RESULTS PENDING 12/24/2019 12/24/2019 12:47 AM EDT documented as of this encounter Care Teams Global Cmo Relationship Specialty Start Date End Date Adrienne Cardona MD [address] [address] PCP - General 04/25/07 documented as of this encounter
--- OUTSIDE RECORDS SUMMARY | 2024-07-11 02:29 | XMS_ITS | Clinical Summary ---
Author Organization [facility] Address [address] [place] [address] Care Team Providers Care Md Ophthalmologist Name Role Phone Pcp, No Primary Care Provider Unavailabl e Allergies Active Allergy Reactions Criticality Noted Date Comments Tea Tree Oil Hives 09/22/2018 Medications escitalopram oxalate (Lexapro) 5 mg tablet Take 1 Tablet (5 mg) by mouth once daily. 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 (10/02/2021): s/p repair 2005 Bradycardia 10/02/2021 Syncope 10/02/2021 Tricuspid valve insufficiency 10/02/2021 Mitral valve insufficiency 10/02/2021 Immunizations Immunization Administration Dates Next Due DTaP 07/10/2006, 4,02/22/2003,2002,2002 HIB PRP-OMP (PedvaxHIB) 06/18/2004,12/07,2002,2002 Inactivated Polio Vaccine 07/10/2006,01/14/2005 Influenza, IIV3 (Age >=3 years) 01/06/2006,01/14,02/22/2003 MMR 07/10/2006,07/15/2005 Pneumococcal conj 7-Valent ( Prevnar 7) 06/18/2004 Social History Tobacco Use Types Packs/Day Years Used Date Smoking Tobacco: Never Smokeless Tobacco: Never Tobacco Cessation:Counseling Given: Yes Alcohol Use Standard Drinks/Week Comments Not Currently 0 (1 standard drink = 0.6 oz pur e alcohol) Social Connections Answer Date Recorded Frequency of Communication with Friends and Fami ly Not on file 10/02/2021 Comments Unknown Sex and Gender Information Value Date Recorded Sex Assigned at Not on file Legal Sex Female 8:22 PM CDT Gender Identity Not on file Sexual Orientation Not on file Obstetrics History Last Filed Vital Signs Vital Sign Reading Time Taken Comments Blood Pressure 125/78 07/24/2021 10:04 PM CDT Pulse 46 07/24/2021 10:19 PM CDT Temperature 36.7 C (98 F) 07/24/2021 8:55 PM CDT Respiratory Rate 18 07/24/2021 8:55 PM CDT Oxygen Saturation 99% 07/24/2021 10:19 PM CDT Inhaled Oxygen Concentration - - Weight 53.5 kg (118 lb) 07/24/2021 8:54 PM CDT Height 165.1 cm (5' 5) 07/24/2021 8:54 PM CDT Body Mass Index 19.64 07/24/2021 8:54 PM CDT Plan of Treatment Health Maintenance Due Date Last Done Comments Tdap 2013 Depression screening for age 12+ 2014 HIV for age 15-65 2017 HPV series for age 9-26 (1 - 3-dose series) 2017 Chlamydia for age 16-24 2018 BMI (ht and wt on same day) for age 18+ 2020 Hepatitis C screening for age 18-79 2020 Pneumococcal series for age 6-49 (1 of 2 - PCV) 2021 06/18/2004 Tetanus booster 2022 Pap test for age 21-65 05/22/2023 COVID-19 vaccine series ( - season) 2023 Influenza Vaccine (Season Ended) 2024 01/06/2006, 01/14/2005, 02/22/2003 Insurance [employer] Care Teams Md Ophthalmologist Relationship Specialty Start Date End Date Pcp, No . PCP - General 07/24/21
--- OUTSIDE RECORDS SUMMARY | 2024-07-11 02:29 | XMS_ITS | Clinical Summary ---
Author Organization [facility] Address [address] [place] [address] Care Team Providers Care Scout Executive Name Role Phone Penelope Thmoas M.D. Primary Care Provider [phone] Source Comments Patient records contain information from all sites at [facility]. For routine questions regarding patient records, call [phone] during business hours, M-F 8:00 AM - 5:00 PM Central Time. Record requests for emergency care only can be directed to [phone] at any time.[facility] Allergies Active Allergy Reactions Criticality Noted Date Comments Tea Tree Oil Hives (Reselect Reaction) 09/23/19 19 Medications * This document contains information received from the source organization and may not represent a complete record from that organization. escitalopram (LEXAPRO) 10 mg tablet Take 1 tablet by mouth daily. 06/12/2021 Active sod.chlorid-pot assium chloride 287-180-15 mg tablet Take 2 tablets by mouth 2 (two) times a day. 10/07/2018 Active Active Problems Problem Noted Date Diagnosed Date Regurgitation Tricuspid Rheumatic 10/02/2021 Syncope 10/02/2021 Transitional Atrioventricular Septal Defect 09/08 Overview (11/12/2022): s/p repair 2005 Bradycardia 08/22/2018 Insufficiency Mitral Congenital 08/22/2018 Immunizations Immunization Administration Dates Next Due DTaP (Infanrix, Tripedia) 07/10/2006,09/2003,02/22/2003,2002, 2002 Hib (PRP-OMP) (PedvaxHIB) 06/18/2004,2002, 2002,2002 IPV 07/10/2006,01/14/2005 Influenza TIV (IM) 01/06/2006,01/14/2005, 003 Influenza, Seasonal, Injectable 01/06/2006,01/14,02/22/2003 MMR 07/10/2006,07/15/2005 PCV7 (discontinued) 06/18/2004 Social History Tobacco Use Types Packs/Day Years Used Date Smoking Tobacco: Never Smokeless Tobacco: Never Tobacco Cessation:Counseling Given: Not Answered Overall Financial Resource Strain (CARDIA) Answe r Date Recorded How hard is it for you to pa y for the very basics like food, housing, medical care, and heating? Not very hard 11/12/2022 PHQ-2 Answer Date Recorded PHQ-2 Score 2 11/12/2022 Exercise Vital Sign Answer Date Recorde d On average, how many days pe r week do you engage in moderate to strenuous exercise (like a brisk walk)? 7 days 11/12/2022 On average, how many minutes do you engage in exercise at this level? 120 min 11/12/2022 Hunger Vital Sign Answer Date Recorded Within the past 12 months, y ou worried that your food would run out before you got the money to buy more. Patient declined Within the past 12 months, t he food you bought just didn't last and you didn't have money to get more. Patient declined 07/2022 PRAPARE - Transportation Answer Date Re corded In the past 12 months, has l ack of transportation kept you from medical appointments or from getting medications? No 07/2022 In the past 12 months, has l ack of transportation kept you from meetings, work, or from getting things needed for daily living? No 11/12/2022 Nutrition Answer Date Recorded Nutrition: EVOO Fat Source Unknown 11/12 On average, how many serving s of fruits and vegetables do you eat per day (serving size is equal to 1 cup or approximately the size of a tennis ball)? 5 or more 11/12/2022 Dental Answer Date Recorded Dental: Regular Dentist Yes 11/13/19 Employment Answer Date Recorded Employment status Employed but not working due t o illness or injury 11/12/2022 Housing Stability Answer Date Recorded What is your living situation today? I have a [facility] place to live 11/12/2022 Comments Unknown Sex and Gender Information Value Date Recorded Sex Assigned at Female 12/16/2022 3:53 PM CDT Legal Sex Female 3:24 PM CDT Gender Identity Female 12/16/2022 3:53 PM CDT Sexual Orientation Bisexual 12/16/2022 3: 53 PM CDT Last Filed Vital Signs Vital Sign Reading Time Taken Comments Blood Pressure 108/64 11/12/2022 2:47 PM CDT Pulse 54 11/12/2022 2:47 PM CDT Temperature 35.7 C (96.2 F) 11/12/2022 2:47 PM CDT Respiratory Rate 14 11/12/2022 2:47 PM CDT Oxygen Saturation - - Inhaled Oxygen Concentration - - Weight 53 kg (116 lb 13.5 oz) 12/17/2022 1:05 PM CDT Height 165 cm (5' 4.96) 12/17/2022 1:05 PM CDT Body Mass Index 19.47 12/17/2022 1:05 PM CDT Plan of Treatment Health Maintenance Due Date Last Done Comments Cervical/Vaginal Cancer Screening 2002 Chlamydia and Gonorrhea Screening 2002 HIV Screening 2002 Hepatitis C Screening 2002 IPV Vaccines (3 of 3 - 4-dose series) 01/10/2007 07/10/2006, 01/14/2005 DTaP,Tdap,and Td Vaccines (6 - Tdap) 2013 07/10/2006, 11/15/2003, 02/22/2003, Additional history exists HPV Vaccines (1 - 3-dose series) 2017 Hepatitis B Vaccines (1 of 3 - 19+ 3-dose series) 2021 COVID-19 Vaccine ( season) 2023 Influenza Vaccine (#1) 2023 6, 01/06/2006, 01/14/2005, Additional history exists Depression Screening (Annual PHQ-2) 03/10/2024 Pneumococcal vaccine (0-49 years) Aged Out 06/18/2004 No longer eligible based on patient's age to complete this topic Meningococcal Vaccine Aged Out No jared regis eligible based on patient's age to complete this topic Insurance [employer] Care Teams Scout Executive Relationship Specialty Start Date End Date Penelope Thomas M.D. NPElia: [id number] [address] [place] [phone] PCP - General Family Medicine 11/04/22
--- OUTSIDE RECORDS SUMMARY | 2024-07-11 02:29 | XMS_ITS | Clinical Summary ---
Author Organization [facility] Address [address] [place] [address] Care Team Providers Care Change Of Address Clerk Name Role Phone Adrienne Cardona MD Primary Care Provider [phone] Allergies Active Allergy Reactions Criticality Noted Date Comments Tea Tree Oil Rash 07/07/2016 Medications MULTIVITAMIN ORAL Take 1 tablet by mouth once daily. Active cyanocobalamin, vitamin B-12, (VITAMIN B12 ORAL) Take 1 tablet by mouth once daily. Active Sodium Cl-Potassium Chloride (THERMOTABS) 287-180-15 mg oral TabIndications: Atrioventricula r canal (AVC), transitional,Di zziness Take 2 tablets by mouth twice daily. Take after breakfast and after dinner. 120 tablet 12 9 Active blood sugar diagnostic [facility] stripIndication s:Hypoglycemia Use as directed to check blood glucose when having signs of low blood glucose. 50 Strip 3 05/12/2019 3:29 PM EST 0 Active blood glucose meter Mis kitIndications: Hypoglycemia Use to check blood glucose as directed when having signs of low blood glucose. 1 Kit 05/12/2019 3:29 PM EST 0 Active lancets 30 gauge [facility] MiscIndications :Hypoglycemia Use with lancing device as directed to check blood sugar 100 Each 3 05/12/2019 3:29 PM EST 0 Active Active Problems Problem Noted Date Diagnosed Date Mild protein-calorie malnutrition 05/11/2019 POTS (postural orthostatic tachycardia syndrome) 05/10/2019 Excessive daytime sleepiness 07/30/2018 Syncope, vasovagal 07/07/2016 Overview (07/15/2016): Oct [employer] mission trip; Jul 07-July 08 admitted to [facility] S/P atrioventricular septal defect repair 005 05/27/2013 Atrioventricular canal (AVC), transitional Overview (09/14/2009): repaired 10/2004 Cleft leaflet, mitral valve Overview (09/14/2009): repaired 10/2004 SBE (subacute bacterial endocarditis) prophylaxi s candidate Overview (01/21/2018): Subacute Bacterial Endocarditis (SBE) Prophylaxis is indicated before appropriate procedures including: - dental procedures that involve manipulation of gingival tissue or perforation of oral mucosa including dental cleanings - invasive respiratory tract procedures (e.g. tonsillectomy, adenoidectomy) - surgical procedures that involve infected skin or soft tissue SBE prophylaxis is NOT required for tympanostomy tube insertion, routine dental anesthetic injections, placement/adjustment of orthodontic appliances, bleeding from trauma to lips or oral mucosa, GI/ tract procedures or bronchoscopy without incision of the respiratory tract mucosa Resolved Problems Problem Noted Date Diagnosed Date Resolved Date Hypoglycemia 05/10/2019 05/12/2019 Immunizations Immunization Administration Dates Next Due Influenza, injectable, quadrivalent, preservativ e free 05/12/2019 Influenza, seasonal, injectable 01/09/2012 Influenza, seasonal, injectable, preservative fr ee 12/08/2015,12/02/2014 Family History Medical History Relation Comments Early Myocardial Infarction Grandparent 1 Diabetes Grandparent 2 Hyperlipidemia Grandparent 3 Hyperlipidemia Natural Father Murmur Natural Mother Congenital Heart Disease Other materna l aunt ASD Relation Status Comments Grandparent 1 Grandparent 2 Grandparent 3 Natural Father Natural Mother Other Social History Tobacco Use Types Packs/Day Years Used Date Smoking Tobacco: Never Smokeless Tobacco: Never Tobacco Cessation:Counseling Given: No Alcohol Use Standard Drinks/Week Comments Not Asked 0 (1 standard drink = 0.6 oz pur e alcohol) Comments Unknown Sex and Gender Information Value Date Recorded Sex Assigned at Not on file Legal Sex Female 8:02 AM EST Gender Identity Not on file Sexual Orientation Not on file Last Filed Vital Signs Vital Sign Reading Time Taken Comments Blood Pressure 116/67 03/15/2020 4:17 PM EST Pulse 86 03/15/2020 4:17 PM EST Temperature 37.1 C (98.8 F) 03/15/2020 4:17 PM EST Respiratory Rate 17 05/12/2019 12:00 PM EST Oxygen Saturation 98% 05/12/2019 3:00 PM EST Inhaled Oxygen Concentration - - Weight 47.7 kg (105 lb 2.6 oz) 03/15/2020 4:17 P M EST Height 163.7 cm (5' 4.45) 03/15/2020 4:17 PM ES T Body Mass Index 17.8 03/15/2020 4:17 PM EST Plan of Treatment Health Maintenance Due Date Last Done Comments MMR Vaccine (1 of 1 - Standard series) 05/22/2003 DTaP/Tdap/Td Vaccine (1 - Tdap) 2009 Varicella Vaccine (1 of 2 - 13+ 2-dose series) 05/22/2015 HPV Vaccine (1 - 3-dose series) 2017 Meningococcal B Vaccine (1 of 2 - Standard) 2018 Hepatitis B Vaccine (1 of 3 - 19+ 3-dose series) 2021 COVID-19 Vaccine (1 - season) 2023 Influenza Vaccine (#1) 2023 0, 12/08/2015, 12/02/2014, Additional history exists HIB Vaccine Aged Out No longer eligi ble based on patient's age to complete this topic Hepatitis A Vaccine Aged Out No longe r eligible based on patient's age to complete this topic IPV Vaccine Aged Out No longer eligi ble based on patient's age to complete this topic Meningococcal ACWY Vaccine Aged Out N o longer eligible based on patient's age to complete this topic Pneumococcal Vaccine Aged Out No long er eligible based on patient's age to complete this topic RSV, Nirsevimab Immunization Aged Out No longer eligible based on patient's age to complete this topic Rotavirus Vaccine Aged Out No longer eligible based on patient's age to complete this topic Insurance [facility] Member Subscriber Plan / Payer (Ef fective 2016-Present) Name:Alok Palacios Member ID:Not on file Relation to Subscriber:Child Name:PHILIPARNULFOYUMIKO A Date of :1966 (Home) Address: [address] [place] [address] Payer ID:[id number] Type:Commercial Address: [address] [place] [id number] Care Teams Change Of Address Clerk Relationship Specialty Start Date End Date Adrienne Cardona MD [address] [facility] [address] [place] [id number] PCP - General 04/25/07
--- OUTSIDE RECORDS SUMMARY | 2024-07-11 02:29 | XMS_ITS | Encounter Summary ---
Author Organization [facility] Address [address] [facility] [place] [address] Care Team Providers Care Snow Fence Erector Name Role Phone Adrienne Cardona MD Primary Care Provider [phone] Encounter Details Date Type Department Care Team (Late st Contact Info) Description 07/11/2011 Orders Only Cardiology Clinic Main [place] [address] [facility] [facility] 2nd [place] [id number] Historical, Provider Social History Tobacco Use Types Packs/Day Years [...] Procedure Name Priority Date/Time Associated Diagnosis Comments [facility] Routine 07/10/2011 documented in this encounter Results * [facility] (07/10/2011) us Provider Historical [facility] Final Result EXTERNAL LAB documented in this encounter Visit Diagnoses Not on filedocumented in this encounter Additional Health Concerns Infection Onset Date Last Indicated Resolved Time COVID-19 RESULTS PENDING 12/24/2019 12/24/2019 12:47 AM EDT documented as of this encounter Care Teams Snow Fence Erector Relationship Specialty Start Date End Date Adrienne Cardona MD [address] [facility] [address] [place] [address] PCP - General 04/25/07 documented as of this encounter
--- OUTSIDE RECORDS SUMMARY | 2024-07-11 02:29 | XMS_ITS | Encounter Summary ---
Author Organization [facility] Address [address] [facility] [place] [address] Care Team Providers Care Slip Mixer Name Role Phone Adrienne Cardona MD Primary Care Provider [phone] Encounter Details Date Type Department Care Team (Late st Contact Info) Description 06/08/2012 Orders Only Cardiology Clinic Main [place] [address] [facility] [facility] 2nd [place] [id number] Historical, Provider Social History Tobacco Use Types [...] Associated Diagnosis Comments [facility] Routine 2012 documented in this encounter Results * [facility] (2012) us Provider Historical [facility] Final Result EXTERNAL LAB documented in this encounter Visit Diagnoses Not on filedocumented in this encounter Additional Health Concerns Infection Onset Date Last Indicated Resolved Time COVID-19 RESULTS PENDING 12/24/2019 12/24/2019 12:47 AM EDT documented as of this encounter Care Teams Slip Mixer Relationship Specialty Start Date End Date Adrienne Cardona MD [address] [facility] [address] [place] [address] PCP - General 04/25/07 documented as of this encounter
[2024-07-11 03:00] VITALS: BP 115/54; PULSE 70; RESP 16; TEMP 37.2; O2SAT 98
[2024-07-11 06:58] VITALS: PULSE 149; O2SAT 91
[2024-07-11 08:50] VITALS: BP 103/51; PULSE 50; RESP 16; TEMP 36.7; O2SAT 98
[2024-07-11] MEDS: lamoTRIgine 100 MG TABLET 200 MG PO (09:44)
[2024-07-11 15:24] VITALS: BP 115/74; PULSE 60; RESP 16; TEMP 37.4; O2SAT 99
== END 2024-07-11 16:15 ==
PROVIDERS: Emergency Provider Family Medicine
DX: R45.851 Suicidal ideations (principal); F44.9 Dissociative and conversion disorder, unspecified; Z91.52 Personal history of nonsuicidal self-harm; Z20.828 Contact with and (suspected) exposure to other viral communicable diseases
CPT/HCPCS: 36415; 80048; 80076; 80143; 80179; 80306; 81025; 82077; 84443; 85025; 87635; 99284; 99285; Q3014; A9270

== ENCOUNTER 2024-07-11 15:47 | Outpatient (CLI) | payer OTHER, SELFPAY | END 2024-07-11 15:48 | disposition home or self-care (01) | LOC: AMB 07-12 14:07 | PROVIDERS: Visit Provider Family Medicine | DX: R45.851 Suicidal ideations (principal) | CPT/HCPCS: A0425; A0428 ==

== ENCOUNTER 2024-12-13 19:43 | Outpatient (CLI) | payer OTHER, SELFPAY | END 2024-12-13 19:44 | disposition home or self-care (01) | LOC: AMB 12-15 10:31 | PROVIDERS: Visit Provider Family Medicine | DX: R56.9 Unspecified convulsions (principal); R55 Syncope and collapse | CPT/HCPCS: A0425; A0427 ==

== ENCOUNTER 2024-12-13 20:20 | Emergency (ER) | payer OTHER, SELFPAY ==
--- OUTSIDE RECORDS SUMMARY | 2020-05-23 12:00 | XMS_ITS | Continuity of Care Document ---
Author Organization 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 [address], [place], [id number] , . tel:[phone] [facility] , [address], [place], [id number], tel:[phone] [facility] Dept Immunization immunization records (chief complaint)imm unizations (chief complaint) No Information 1 James Tesfaye. [address], [place], [id number] , . tel:[phone] Family History Family Member Type Diagnosis Age At Onset No Information Immunizations Vaccine Date Status Comments Pfizer-BioNTech Covid 19 administered Not e: TPV22 ; Source: New Immunization Record Pfizer-BioNTech COVID-19 Vaccine administered Note: TPV22 ; Source : New Immunization Record Payers Payer name Insurance type Covered libertarian ID Authoriza tion(s) No Information Social History Type Description Quantity Date Captured Comments Sex Female Smoking Status No Information Chief Complaint And Reason For Visit No Information Reason For Referral Reason For Referral No Information History Of Present Illness Encounter Date Complaint History Of Prese nt Illness immunization records immunizations Functional Status Date Functional Assessmen t No Information Instructions Date Instruction Additional Infor mation No Information Assessments Type Assessment Date No Information Patient Care Teams Name Effective Dates (start - stop) Status Members No Information
--- OUTSIDE RECORDS SUMMARY | 2020-05-23 12:00 | XMS_ITS | Continuity of Care Document ---
Author Organization [facility] rtment Address [address] [place] [address] Phone Care Team Providers Care Utility Agent Name Role Phone Brien Ramirez MD Unavailable Unavailable Procedures Procedure Date PFIZER SARSCOV2 VACCINE .3ML ADMN PFIZER SARSCOV2 .3ML 2ND DOSE ADMN PFIZER SARSCOV2 .3ML 1ST DOSE PFIZER SARSCOV2 VACCINE .3ML Advance Directives Directive Yes / No Effective Date File Name No Information Encounters Encounter Description Practice Location Reason(s) For Visit Diagnoses Date Provider Providers Copied on Encounter [facility] , [address], [place], [id number], tel:[phone] [facility] Dept Immunization No Information 1 James Tesfaye. [address], [place], [id number] , . tel:[phone] [facility] , [address], [place], [id number], tel:[phone] [facility] Dept Immunization immunization records (chief complaint)imm unizations (chief complaint) No Information 1 James Tesfaye. [address], [place], [id number] , . tel:[phone] Family History Family Member Type Diagnosis Age At Onset No Information Immunizations Vaccine Date Status Comments Pfizer-BioNTech Covid 19 administered Not e: TPV22 ; Source: New Immunization Record Pfizer-BioNTech COVID-19 Vaccine administered Note: TPV22 ; Source : New Immunization Record Payers Payer name Insurance type Covered democrat ID Authoriza tion(s) No Information Social History [...]
--- OUTSIDE RECORDS SUMMARY | 2024-08-12 14:30 | XMS_ITS | Encounter Summary ---
Author Organization [facility] Address [address] [place] [address] Care Team Providers Care Body Shop Supervisor Name Role Phone Luis Felipe Briseno APRN-MULTI SKILLED OPERATOR Primary Care Provider + Reason for Visit * Reason Comments Adult Intensive Outpatient Program * Psychiatric IOP & Partial Hospitalization (Routine) - Closed Specialty Diagnoses / Procedures Referred By Rachel gaona Referred To Contact Psychiatry Procedures DBT IOP Self, Self Partial Hospitalization [address] [place] [address] Phone: tel: fax: Referral ID Status Reason Start Date Expiration Date Visits Re quested Visits Authorized [id number] Closed 08/12/2024 09/06/2025 24 24 Encounter Details Date Type Department Care Team (Late st Contact Info) Description 08/12/2024 3:30 PM EDT Office Visit [facility] Behavioral Health [address] [place], [place] [address] [address] Jerald Cee MD [address] [place] [address] Bipolar depression (Primary Dx) Social History Tobacco Use Types Packs/Day Years Used Date Smoking Tobacco: Never Smokeless Tobacco: Never Comments:Off and on in colle ge Alcohol Use Standard Drinks/Week Comments Yes 0 (1 standard drink = 0.6 oz pur e alcohol) socially Depression Answer Date Recorded PHQ-9 Total Score (Interpret ation of Total Score 1-4 = Minimal depression; 5-9 = Mild depression; 10-14 = Moderate depression; 15-19 = Moderately severe depression) 16 10/12/2024 Comments No Sex and Gender Information Value Date Recorded Sex Assigned at Not on file Legal Sex Female 5:18 PM EDT Gender Identity Female 08/09/2024 9:10 PM EDT Sexual Orientation Bisexual 08/09/2024 9: 10 PM EDT documented as of this encounter Progress Notes * Jerald Cee MD - 08/12/2024 3:30 PM EDT See 08/10/2024 documentation by OLE Monet for my attestation. Jerald Cee MD Department of Psychiatry [facility] - Clinical documented in this encounter Plan of Treatment Not on file documented as of this encounter Visit Diagnoses Diagnosis Bipolar depression- Primary Bipolar I disorder, most recent episode (or current) depressed, unspecified documented in this encounter Additional Health Concerns Assessment Noted Time PHQ-9 Depression Total Score: 20 025 11:00 AM EDT documented as of this encounter Care Teams Body Shop Supervisor Relationship Specialty Start Date End Date Luis Felipe Briseno APRN-NICOL PCP - General Certified Nurse Practitioner 08/16/22 documented as of this encounter
--- OUTSIDE RECORDS SUMMARY | 2024-11-16 07:10 | XMS_ITS | Encounter Summary ---
Author Organization [facility] Address [address] [place] [address] Care Team Providers Care Boat Ride Operator Name Role Phone Luis Felipe Briseno Aziza LALA Primary Care Provider [phone] Source Comments In the event this information is protected by the Federal Confidentiality of Alcohol and Drug AbusePatient Records regulations: The Federal rules restrict any use of the information to criminally investigate or prosecute any alcohol or drug abuse patient.[facility] Reason for Visit * Reason Comments Established Patient Encounter Details Date Type Department Care Team (Latest Contact Info) Description 11/16/2024 8:10 AM EDT [facility] Pediatric Cardiology [address] [place] [address] Kamala Walker MD [address] [place] [address] Status post placement of implantable loop recorder (Primary Dx); Sinus bradycardia; Moderate mitral regurgitation Social History Tobacco Use Types Packs/Day Years Used Date Smoking Tobacco: Never Smokeless Tobacco: Never Comments:Father and pt uncle use smokeless tobacco. PHQ-2 Answer Date Recorded PHQ-2 score 2 10/17/2023 Area Deprivation Index Answer Date Jewel rded National Score (1-100), lower number is lower ri sk 9 10/05/2024 State Score (1-10), lower number is lower risk 1 10/05/2024 Data from: https://www.neighborhoodatlas.medicine.[facility]/. Last address used for calculation [address] 10/05/2024 Comments No Sex and Gender Information Value Date Recorded Sex Assigned at Not on file Legal Sex Female 11:54 AM EDT Gender Identity Not on file Sexual Orientation Not on file documented as of this encounter Functional Status * Are you deaf or do you have serious difficulty hearing? Answer Date of Assessment Author No 10/07/2024 3:51 PM EDT Salma Russo RN * Are you blind or do you have serious difficulty seeing, even when wearing glasses? Answer Date of Assessment Author No 10/07/2024 3:51 PM EDT Salma Russo RN * Do you have serious difficulty walking or climbing stairs? Answer Date of Assessment Author No 10/07/2024 3:51 PM EDT Salma Russo RN * Do you have difficulty dressing or bathing? Answer Date of Assessment Author No 10/07/2024 3:51 PM EDT Salma Russo RN * Because of a physical, mental, or emotional condition, do you have difficulty doing errands alone such as visiting a doctor's office or shopping? Answer Date of Assessment Author No 10/07/2024 3:51 PM EDT Salma Russo RN documented as of this encounter Mental Status * Because of a physical, mental, or emotional condition, do you have serious difficulty concentrating, remembering, or making decisions? Answer Entry Date Author No 10/07/2024 3:51 PM EDT Salma Russo RN documented in this encounter Progress Notes * Kamala Walker MD - 11/16/2024 8:27 AM EDT [facility] Rhythm [facility] Electrophysiology Clinic Patient Name: Alok Palacios Date of : 2000 Date of Visit: 11/16/2024 This is a virtual visit using MyChart Zoom Video Visit. It required patient- provider interaction for the medical decision making as documented below. Alok Palacios has consented to this encounter. Persons Present: patient The history is provided by patient and epic notes. History of Present Illness: Alok Palacios is a 24 year old female seen by Pediatric Electrophysiology at the [facility] on November 16, 2024 in routine 6 week follow up post ILR replacement. Alok's cardiovascular history is well-summarized from our last clinic visit on 08/23/2024, as follows: Alok is followed by my colleague, Dr. Do, for her history of transitional AV canal and dysautonomia. Alok had been followed at [facility] and transferred her care to us in 2019. From a cardiac standpoint, her most recent evaluation demonstrated mild to moderate mitral regurgitation with mild LA dilation, normal biventricular size and systolic function. She also had an exercise stress test [id number], which showed good effort and 1:1 conduction up to maximal heart rate of 186 bpm. She had isolated PVCs and the study was terminated due to lightheadidness. Alok has had episodes of syncope since 2009 and symptoms progressively got worse though middle school and highschool to the point where she could not play sports. She has had multiple episodes requiring admission, most involving syncope associated with bradycardia to the 30s-40s during the episodeand recovery. In middle school, she had one episode while swimming and had to be pulled out of the pool. These episodes are preceded mostly by typical prodromal symptoms and are associated with prolonged recovery. She describes that she can't comprehend what is going around her and can't form wordsor thoughts. She was evaluated by neurology at [facility] in 2013 and these episodes were thought to be vasovagal in nature resulting in the episodic low heart rate rather than it being a primary bradyarrhythmia problem. She reports that most of the time she recognizes her symptoms and is able to prevent herself from passing out by tightening her muscles or holding onto something or sitting down. She was diagnosed with autonomic dysfunction and was started on salt tablets and florinef with improvement in dizziness but persistence of her fatigue. She has continued to practicegood hydration and a healthy diet. She is no longer on flornief. She was seen by Dr. Curry in August 2018 and had a tilt table test that showed postural increase in HR by 54 bpm along with fatigue, ti ngling and heavy feeling during tilt. She was diagnosed with POTS. She also had a sleep study in August 2018 and was diagnosed with idiopathic hypersomnia. She was trialed on methylphenidate without improvement. She has anxiety and depression and is currently on Lexapro. Alok had an implantable loop recorder placed on June 05, 2022. At the time of our last visit, shewas still struggling with POTS symptoms despite lifestyle changes. She was wheelchair bound. We hadreviewed her ILR recordings and she had no significant pauses. Her symptoms correlated with sinus rhythm and sinus bradycardia. She did have a sudden onset tachycardia in 2022 followed by bradycardia. After review, this episode was consistent with her report of hitting her elbow which caused a cascade of symptoms requiring her to lie down with her feet elevated. Interval History: Since her last visit with us in 2022, Alok reports significant improvement in her physical condition, when she was wheelchair-bound due to severe symptoms. She attributes her improvement to gradual physical conditioning and believes she may be growing out of her POTS. She still experiences occasional symptoms similar to POTS, particularly with overexertion, such as walking uphills, but these episodes are less frequent and severe than in the past. She notes that her symptoms are now less frequent and severe compared to when she was younger, when she would experience episodes all the time and even turn blue, requiring hospitalization. She denies recent episodes of dizzi ness or lightheadedness when standing up quickly. She studied abroad in [facility], during the fall and experienced two syncopal episodes. She also had a syncopal episode in July, which she attributes to multiple medication changes and increasing doses of lamotrigine and lithium. During this episode, she was sitting and talking to her therapist when she felt faint, passed out, and then passed out again upon sitting up. EMS was called, and she was transported to the hospital. In the ambulance, she experienced severe pain from an IV insertion, which she believes may have triggered a vagal response. She was told her heart rate dropped to 28 bpm and there was a brief asystolic pause. She was monitored in the hospital, where her blood pressure was reportedly very low, but she was discharged after receiving fluids. She reports feeling exhausted and symptomatic even upon discharge. She denies any syncopal episodes since July. She reports occasional palpitations and feelings of exhaustion, which she finds difficult to attribute to either POTS or her medications. She notes that her symptoms are generally much better overall. She denies any significant changes in her usual activities or triggers on the day of her most recent syncopal episode. She was diagnosed with bipolar disorder in March 2023, after initially being diagnosed with depression and anxiety and starting Lexapro. She was started on Latuda and lamotrigine, and later lithiumwas added due to episodes of hypomania. In July, she was taken off Latuda due to akathisia and her lamotrigine and lithium doses were increased, with lithium now at 900 mg daily. She reports improvement in her manic symptoms since these adjustments. She is currently participating in an intensive outpatient dialectical behavior therapy (DBT) program at [facility]. Interval History: At the time of our last visit, a review of her ILR recording showed a 4 second pause but after dissecting her history and the timing of the event, we concluded that this occurred atthe time of IV placement in the ambulance. Her syncopal episode occurred prior to that and there are no other recordings of pauses on that day or ever before. In fact, I reviewed her ILR remote transmissions and her symptomatic events have always correlated with sinus rhythm, sinus tachycardia and sinus bradycardia. Based on data from her ILR and clinical history, I did not believe that a pacemaker is indicated. Her ILR battery had reached end of life and I recommended that ILR replacement is in dicated to ensure continued close monitoring given continued symptomatology. Alok underwent ILR extraction and replacement on 09/01/2024 and presents today for routine 6 week follow up. Her procedurewas uncomplicated and she was discharged home on the same day. She has had an uneventful recovery. Perhaps, she experienced a little bit more pain than last time but tylenol was enough. Her incision has healed well and she has not noticed any redness, swelling, or discharge from the incision site. She is back in school and is doing well. She had diffuse abdominal pain along with nausea and emesisfor which she was evaluated in the ED. On the same day, we received a remote transmission that showed a 4 second pause. Our dog daycare provider reached out to Alok and checked on her and found out thatjuan had been having pain and was seen in the ED and diagnosed with infectious colitis. She had somedizziness but no syncope. She has been feeling much better since then. We thought that she most likely had pain induced vasovagal response and elected to continue to monitor without a pacemaker for now. Cardiac Review of Systems: Unless otherwise noted, Alok is asymptomatic from a cardiovascular standpoint including no palpitations, chest pain, syncope, dyspnea, cyanosis, edema or activity intolerance. Review of Systems: PSYCH: Positive for depression and anxiety NEURO: Positive for presyncope and POTS The remainder of the review of systems is negative. Past Medical History: PAST MEDICAL HISTORY Diagnosis Date Depression Generalized anxiety disorder Idiopathic hypersomnia Implantable loop recorder present Junctional bradycardia Left ventricular dilation Mitral regurgitation POTS (postural orthostatic tachycardia syndrome) Social History: She graduated with a degree in psychology and plans to complete a few more classes in the fall - currently in [place] back in college. 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 Cardiac Family History: No family history on file. No additional history of syncope, seizures, arrhythmias, drownings, single car accidents, sudden cardiac , early pacemaker or ICD implantation or congenital deafness. Medications: lamoTRIgine (LAMICTAL) 100 mg tablet Take 200 mg by mouth every morning. lithium carbonate ER 300 mg CR tablet 900 mg ondansetron orally disintegrating (ZOFRAN ODT) 4 mg disintegrating tablet TAKE TWO TABLETS BY MOUTHAND allow TO dissolve every EIGHT hours as needed QUEtiapine (SEROQUEL) 25 mg tablet TAKE ONE-HALF (0.5) TABLETS BY MOUTH THREE TIMES DAILY NEEDED hydrOXYzine pamoate (VISTARIL) 25 mg capsule Take 25 mg by mouth once daily as needed. Allergies: ALLERGIES No Known Allergies Physical Examination: LMP 08/03/2024 (Exact Date) GENERAL: alert and appropriate, in no distress, well-hydrated, well nourished, and happy, smiling, interactive SKIN: no rash noted, ILR site well healed. RESPIRATORY: breathing non-labored Electrocardiogram: I have reviewed and interpreted the ECG 08/23/2024 - NSR at 58 bpm. Left axis deviation. CRBBB. 08/02/2022 - Sinus bradycardia at 56 bpm, LAD, CRBBB (QRS 140 ms), QTc 457 ms 03/05/2022 - Sinus bradycardia at 57 bpm, left axis deviation, complete right bundle branch block (QRS 138), QTc 460 ms 10/17/2021 - Sinus bradycardia at 48 bpm, left axis deviation, CRBBB 08/19/2018 - Sinus bradycardia at 45 bpm, left axis deviation, CRBBB Device Interrogation: I have reviewed and interpreted the device interrogation 11/02/2024 >Summary 03-Oct-2024 to 03-Nov-2024 * This is a normal remote diagnostic device check * Alerts or events: 1 symptom and 1 pause (both previously reported). * Battery data was reviewed * Battery status: Good * Presenting rhythm reviewed SR, ~72 bpm. * Heart Rate Histograms reviewed * PVCs (% beats) 6.1% Premature Ventricular Contraction (PVC) PVCs (% beats) 6.1% 10/20/2024 * Stored EGMs are consistent with or suggestive of Normal Sinus Rhythm *Current ecg- ST 100 bpm. * PVCs (% beats) 6.0% Patient Triggered: No Arrhythmia * Patient triggered event with symptom(s) Other A little active Not sure if this is just healing but I have been getting pain on the top part of the left side of my chest. I am pretty sure it’s healing but I will record it * Stored EGMs are consistent with or suggestive of no arrhythmia(s) * Total patient triggered episodes: 1 Pause * Stored EGMs are consistent with or suggestive of a Pause * Total episodes: 1 * Longest episode: 4 seconds * Rhythm before episode: SR * Rhythm after episode: SR Echocardiogram: I have reviewed the echocardiogram 08/23/2024 1. Unbalanced transitional atrioventricular septal defect. 2. S/p transitional AVSD repair and Left AV valve repair. 3. No residual ASD. 4. Intact ventricular septum. 5. Mild residual regurgitation of the left AV Valve and mild regurgitation of the right AV Valve. 6. No stenosis of the left AV Valve and no stenosis of the right AV Valve. 7. Mildly dilated left atrium. 8. Qualitatively normal right ventricular size and wall thickness with normal systolic function. 9. Normal left ventricular size and wall thickness with normal systolic function. 10. Redundant chordal tissue attachments to the LVOT with trivial outflow gradient (Vmax 2 m/s). 11. Mild flow acceleration in the proximal descending thoracic aorta with normal Doppler flow profile. 12. No pericardial effusion. 13. The prior study for comparison is dated 10/17/2021. Compared with prior study there has been no significant change. MRI (18 August 2019) H/o transitional AV canal defect, s/p repair, residual mitral and tricuspid regurgitation. 1. Normal left ventricular size and global systolic function. LVEDVi 91 cc/m2; LVEF 63%. 2. Upper limits of normal sized right ventricle with normal global systolic function. RVEDVi 94 cc/m2; RVEF 67%. 3. There are some chordal attachments in the LVOT with minimal flow acceleration. Normal aortic valve function. 4. Qualitatively mild tricuspid regurgitation. RF 11%. 5. S/p repair of cleft mitral valve. The anterior mitral leaflet is thickened. There is residual mild to moderate mitral regurgitation arising in the region of the cleft, directed posteriorly. RF 18%. 6. Unobstructed main and branch pulmonary arteries. 7. S/p repair of AV canal defect, no obvious residual atrial or ventricular shunt noted. Qp/Qs = 1.05. 8. Coronary artery anatomy as noted in the body of the report. Ambulatory Monitor: I have reviewed and interpreted the ambulatory monitor Enrollment Dates: 10/17/2021-10/19/2021 Patient had a min HR of 37 bpm, max HR of 171 bpm, and avg HR of 65 bpm. Predominant underlying rhythm was Sinus Rhythm. Isolated SVEs were rare (<1.0%, 2), and no SVE Couplets or SVE Triplets were present. Isolated VEs were rare (<1.0%, 11), and no VE Couplets or VE Triplets were present. ZioPatch (09 September 2019): Patient had a min HR of 33 bpm, max HR of 175 bpm, and avg HR of 68 bpm. Predominant underlying rhythm was Sinus Rhythm. Isolated SVEs were rare (<1.0%, 111), and no SVE. Couplets or SVE Triplets were present. Isolated VEs were rare (<1.0%,151), VE Couplets were rare (<1.0%, 5), and no VE Triplets were present. Exercise Stress Test: I have reviewed and interpreted the EST 03/05/2022 IMPRESSION: 1. Low normal aerobic (8.8 METS Z=-1.38) and normal exercise (11.2 eMETS Z=- 0.84) capacity. SPEED=3.7 ELEVATION=14.5 2. Normal heart rate response with low peak HR 180 (Z=-1.56), normal HR recovery (8.3% 1 min, Z=-0.27, 15.6% 2 min, Z=-0.68). 3. Normal systolic and diastolic BP response. Peak BP 220/78 mmhg. 4. Low normal peak VO2 (1.55 l/min Z=-1.91) and VO2/kg (30.7 ml/min/kg, Z=-1.38). 5. Normal AT/kg (24.0 ml/min/kg Z=-0.47); 78.1% VO2max. 6. Low normal oxygen pulse (8.6 ml Z=-1.69) with normal rise throughout exercise. 7. Normal total ventilation (VE/ht2.5 24.4 l/ht2.5, Z=-0.64; VT/kg 34.2 ml/kg, Z=+0.70; RR 49.0/minZ=-0.47). 8. Low normal peak exercise ETCO2 (31.0 torr, Z=-1.89). 9. High normal VE/VCO2 at AT and slope (33.0, Z=+2.12). 10. NSR with no ectopy or ST-T changes at rest, during exercise and in recovery. 11. Normal SpO2's during study- 100%. 12. Patient reported dizziness at peak but wanted to do the 2 minute walking recovery. Once seated stated that she felt a 9 out of 10 dizziness at peak, 6 out of 10 after walking recovery, 3 out of 10 at 3 minutes recovery, 1 at 5 minutes of recovery. Conclusion: ?? Normal cardiopulmonary response to maximal exercise (RER 1.54, HR plateau, VO2 plateau) with no specific evidence of cardiac limitation based on normal VO2, AT, VE/VCO2, ETCO2, oxygen pulse and HR recovery. Compared to 2019, increase in eMETS (10.2), slight decrease in HR (186), increase in VO2/kg (28.3), with increase in effort (1.25). CPET (29 December 2019) 1. Low normal aerobic (8.1 METS Z=-1.72) and exercise (10.2 eMETS Z=-1.30) capacity. 2. Normal heart rate response with max HR 186 (Z=-0.77), normal seated HR recovery (11.2% 1 min, Z=+0.39, 21.4% 2 min, Z=+0.19). 3. Normal systolic and diastolic BP response. Peak BP 151/62 mmhg. 4. Abnormal peak VO2 (1.32 l/min Z=-2.34) and low normal VO2/kg (28.3 ml/min/kg, Z=-1.72). 5. Normal AT/kg (20.3 l/min/kg Z=-0.89); 72% VO2max. 6. Abnormal oxygen pulse (7.1 ml Z=-2.24) with normal rise throughout exercise. 7. Below average VE with normal VT and RR (VE/ht2.5 16.3 l/ht2.5, Z=-2.56; VT/kg 25.1 ml/kg, Z=-0.87; RR 47.0/min Z=-0.75). 8. Normal resting and peak exercise ETCO2 (36.0 torr, Z=-0.39). 9. High normal VE/VCO2 at AT and slope (31.0, Z=+1.50). 10. NSR with no ectopy or ST-T changes at rest, 2 PVCs during exercise and none in recovery. 11. Normal SpO2's during study- 100%. 12. Patient reported dizziness at peak and did a seated recovery. Patient also stated she felt tired. Normal BP, SPO2, and HR. Conclusion: Normal cardiopulmonary response to maximal exercise (RER 1.25, max HR, HR plateau, no VO2 plateau) with no specific evidence of cardiac limitation based on normal VO2, AT, VE/VCO2, ETCO2,oxygen pulse and HR recovery. Increase in eMETS (9.4), HR (178) and effort (1.17) with similar VO2/kg (27.4) from 2019. Tilt table at [facility] 2022 Patient was tilted for 10 minutes. Orthostatic hypotension was not detected. Heart rate response was excessive but this was not sustained. The patient reported feeling their heart racing, breathlessness, vision going dark, muffled hearing, lightheadedness, dizziness, limbs feeling cold and tingling. During the tilt, the technicians noted the patient leaning to the side, unable to hold themselves up. 12/24/2022 - [facility] 1. The stress ECG was nondiagnostic for ischemia due to resting ST/T wave abnormality. 2. Below average peak VO2 without evidence of cardiac or pulmonary impairment to exercise. 3. Reasons for low peak VO2 likely include deconditioning. 4. No prior test for comparison. Stress results: Stress type: Treadmill. Protocol: [place]. Symptoms: Exercise was terminated due to incapacitation of the patient. Patient briefly lost consciousness at peak exercise. Staff were able Impression: Alok is a 24 year old female with history of transitional AV canal status post repair in 2004 with residual mild to moderate mitral regurgitation, mild LV dilation, normal LV size and systolic function with dysautonomia and POTS with recurrent syncopal and presyncopal episodes and associated bradycardia s/p ILR extraction and re-implantation. She was evaluated by Dr. Do recently and her repeat echocardiogram showed stable findings. Fortunately, her POTS symptoms have significantly improved. She has recovered well from her procedure and her incision has healed well. She had another 4 second recorded pause in the setting of abdominal pain and nausea that is likely vagally mediated. She had no syncope with this episode. She was diagnosed with colitis and has recovered now. Inthe past, her remote transmissions and her symptomatic events have always correlated with sinus rhythm, sinus tachycardia and sinus bradycardia. Based on data from her ILR and clinical history, I do not believe that a pacemaker is indicated at this time. However, continued close monitoring is warranted. She clearly has an element of sinus node dysfunction as well as hypervagatonia. We reviewed importance of reaching out to us immediately in case of syncope. Recommendations: 1. Encourage continued efforts regarding hydration, diet, salt, and exercise 2. Encouraged follow-up with psychiatry and with PCP for mental health concerns 3. Routine care with Dr. Do 4. Avoid beta adalberto and ivabradine for POTS treatment 5. Routine care for ILR with monthly remote and yearly in-clinic interrogations 6. Call our office for palpitations, syncope, or any other concerns Total Time Spent: 30 minutes I spent a total of 30 minutes on the date of the service which included preparing to see the patient, [id number] patient care, completing clinical documentation, obtaining and/or reviewing separately obtained history, performing a medically appropriate examination, counseling and educating the pat ient/family/caregiver, and ordering medications, tests, or procedures Thank you very much for allowing us to participate in Alok's care. Please do not hesitate to contact our clinic with any questions regarding Alok's management. Sincerely, Kamala Tomlin MD Pediatric Electrophysiology [facility] I have communicated my name and active licensure. The patient's identity and physical location wereverified at the time of this visit. Either the patient or their legal title insurance sales representative has been informed of the risks and benefits of -- and alternatives to -- treatment through a remote evaluation andconsents to proceed with the evaluation remotely. documented in this encounter Plan of Treatment Not on file documented as of this encounter Visit Diagnoses Diagnosis Status post placement of implantable loop recorder- Primary Other specified cardiac device in situ Sinus bradycardia Other specified cardiac dysrhythmias Moderate mitral regurgitation Mitral valve disorders documented in this encounter Care Teams Boat Ride Operator Relationship Specialty Start Date End Date Luis Felipe Briseno APRN [address] [id number] PCP - General Family Medicine 08/23/24 documented as of this encounter
--- OUTSIDE RECORDS SUMMARY | 2024-12-13 20:23 | XMS_ITS | Encounter Summary ---
Author Organization [facility] Address [address] [place] [address] Care Team Providers Care Film Editor Name Role Phone Adrienne Cardona MD Primary Care Provider [phone] Luis Felipe Briseno APRN Primary Care Provider + [phone] Source Comments In the event this information is protected by the Federal Confidentiality of Alcohol and Drug AbusePatient Records regulations: The Federal rules restrict any use of the information to criminally investigate or prosecute any alcohol or drug abuse patient.[facility] Encounter Details Date Type Department Care Team (Late st Contact Info) Description 10/23/2022 Patient Msg Neurology [address] [place] [address] Eva Carpio APRN.SENIOR ANALYTICAL CHEMIST [address] [place], [place] [id number] vasovagal syncope Social History Tobacco Use Types Packs/Day Years Used Date Smoking Tobacco: Never Smokeless Tobacco: Never Comments:Father and pt uncle use smokeless tobacco. PHQ-2 Answer Date Recorded PHQ-2 score 3 10/23/2022 Area Deprivation Index Answer Date Jewel rded National Score (1-100), lower number is lower ri sk Not on file 02/17/2020 State Score (1-10), lower number is lower risk N ot on file 02/17/2020 Data from: https://www.neighborhoodatlas.medicine.[facility].edu/. Last address used for calculation Not on file 02/17/2020 Comments No Sex and Gender Information Value Date Recorded Sex Assigned at Not on file Legal Sex Female 11:54 AM EDT Gender Identity Not on file Sexual Orientation Not on file documented as of this encounter Plan of Treatment Not on file documented as of this encounter Visit Diagnoses Not on filedocumented in this encounter Care Teams Film Editor Relationship Specialty Start Date End Date Adrienne Cardona MD [address] [facility] [address] [place] [address] PCP - General Pediatrics 08/19/18 08/22/24 Luis Felipe Briseno APRN [address] [facility] [address] [place] [phone] PCP - General Family Medicine 08/23/24 documented as of this encounter
--- OUTSIDE RECORDS SUMMARY | 2024-12-13 20:23 | XMS_ITS | Encounter Summary ---
Author Organization [facility] Address [address] [place] [address] Care Team Providers Care Chief Pharmacist Name Role Phone Adrienne Cardona MD Primary Care Provider [phone] Luis Felipe Briseno APRN Primary Care Provider + [phone] Source Comments In the event this information is protected by the Federal Confidentiality of Alcohol and Drug AbusePatient Records regulations: The Federal rules restrict any use of the information to criminally investigate or prosecute any alcohol or drug abuse patient.[facility] Encounter Details Date Type Department Care Team (Late st Contact Info) Description 10/23/2022 Patient Msg Neurology [address] [place] [address] Eva Carpio APRN.MULTIPLE RESAW OPERATOR [address] [place], [place] [id number] After visit summary Social History Tobacco Use Types Packs/Day Years [...] N ot on file 02/17/2020 Data from: https://www.neighborhoodatlas.medicine.[facility].edu/. Last address used for calculation Not [...] on filedocumented in this encounter Care Teams Chief Pharmacist Relationship Specialty Start Date End Date Adrienne Cardona MD [address] [facility] [address] [place] [address] PCP - General Pediatrics 08/19/18 08/22/24 Luis Felipe Briseno APRN [address] [facility] [address] [place] [address] PCP - General Family Medicine 08/23/24 documented as of this encounter
--- OUTSIDE RECORDS SUMMARY | 2024-12-13 20:23 | XMS_ITS | Encounter Summary ---
Author Organization [facility] Address [address] [place] [address] Care Team Providers Care Area Secretary Name Role Phone Adrienne Cardona MD Primary Care Provider Encounter Details Date Type Department Care Team (Late st Contact Info) Description 06/25/2007 [facility] [address] [place] [address] Adrienne Cardona MD [address] [facility] [address] [place] [address] Social History Tobacco Use Types Packs/Day Years [...] as dermatophyte. [facility] REPORT STATUS Final [id number] [facility] 06/25/2007 2:27 PM EDT 06/26/2007 8:00 AM EDT us Adrienne Cardona MD MICRO/VIROLOGY ORDERABLES Edit ed Performing Organization Address [facility]/ZIP Co de Phone Number [facility] [address] [place] [address], [place] [phone] * FUNGAL CULTURE, NOCARDIA (06/25/2007 2:27 PM EDT) SPECIMEN DESCRIPTION Toe nail [facility] SPECIAL REQUEST None [facility] CULTURE RESULT Specimen inappropriat e, please recollect. [facility] REPORT STATUS Final 06/26/2007 [facility] 06/25/2007 2:27 PM EDT 06/25/2007 8:29 PM EDT us Adrienne Cardona MD MICRO/VIROLOGY ORDERABLES Livia l Result Performing Organization Address [facility] Co de Phone Number [facility] [address] [place] [address], [place] [phone] * FUNGAL CULTURE, MISCELLANEOUS (06/25/2007 2:27 PM EDT) SPECIMEN DESCRIPTION Toe nail [facility] SPECIAL REQUEST R/O NOCARDIA [facility] FORREST/CALCOFLUOR PREP Test not performed. [facility] CULTURE RESULT Ordered in error, clerical error. [facility] REPORT STATUS Final 06/26/2007 [facility] 06/25/2007 2:27 PM EDT 06/25/2007 7:06 PM EDT us Adrienne Cardona MD MICRO/VIROLOGY ORDERABLES Livia l Result Performing Organization Address [facility] Co de Phone Number [facility] [address] [place] [address], [place] [phone] documented in this encounter Visit Diagnoses Not on filedocumented in this encounter Additional Health Concerns Infection Onset Date Last Indicated Resolved Time COVID-19 RESULTS PENDING 12/24/2019 12/24/2019 12:47 AM EDT documented as of this encounter Care Teams Area Secretary Relationship Specialty Start Date End Date Adrienne Cardona MD [address] [place] [phone] PCP - General 04/25/07 documented as of this encounter
--- OUTSIDE RECORDS SUMMARY | 2024-12-13 20:23 | XMS_ITS | Encounter Summary ---
Author Organization [facility] Address [facility] [place] [address] Care Team Providers Care Supervisor Channel Process Name Role Phone Adrienne Cardona MD Primary Care Provider [phone] Luis Felipe Briseno APRN Primary Care Provider + [phone] Source Comments In the event this information is protected by the Federal Confidentiality of Alcohol and Drug AbusePatient Records regulations: The Federal rules restrict any use of the information to criminally investigate or prosecute any alcohol or drug abuse patient.[facility] Encounter Details Date Type Department Care Team (Late st Contact Info) Description 10/14/2022 [place] [address] Provider, [facility] MRI Screening Questionnaire Completion Required Social History Tobacco Use Types Packs/Day Years Used Date Smoking Tobacco: Never Smokeless Tobacco: Never Comments:Father and pt uncle use smokeless tobacco. Area Deprivation Index Answer Date Jewel rded National Score (1-100), lower number is lower ri sk Not on file 02/17/2020 State Score (1-10), lower number is lower risk N ot on file 02/17/2020 Data from: https://www.neighborhoodatlas.medicine.[facility].edu/. Last address used for calculation Not [...] on filedocumented in this encounter Care Teams Supervisor Channel Process Relationship Specialty Start Date End Date Adrienne Cardona MD [address] [facility] [address] [place] [address] PCP - General Pediatrics 08/19/18 08/22/24 Luis Felipe Briseno APRN [address] [phone] PCP - General Family Medicine 08/23/24 documented as of this encounter
--- OUTSIDE RECORDS SUMMARY | 2024-12-13 20:23 | XMS_ITS | Encounter Summary ---
Author Organization [facility] Address [address] [place] [address] Care Team Providers Care Work Car Operator Name Role Phone Adrienne Cardona MD Primary Care Provider [phone] Luis Felipe Briseno APRN Primary Care Provider + [phone] Source Comments In the event this information is protected by the Federal Confidentiality of Alcohol and Drug AbusePatient Records regulations: The Federal rules restrict any use of the information to criminally investigate or prosecute any alcohol or drug abuse patient.[facility] Encounter Details Date Type Department Care Team (Late st Contact Info) Description 11/21/2022 Patient Msg Pediatrics [address] [place] [address] Provider, [facility] Rescheduled Appointments Social History Tobacco Use Types Packs/Day Years Used Date Smoking Tobacco: Never Smokeless Tobacco: Never Comments:Father and pt uncle use smokeless tobacco. PHQ-2 Answer Date Recorded PHQ-2 score 2 11/05/2022 Area Deprivation Index Answer Date Jewel rded National Score (1-100), lower number is lower ri sk Not on file 02/17/2020 State Score (1-10), lower number is lower risk N ot on file 02/17/2020 Data from: https://www.neighborhoodatlas.medicine.[facility]/. Last address used for calculation Not on [...] on filedocumented in this encounter Care Teams Work Car Operator Relationship Specialty Start Date End Date Adrienne Cardona MD [address] [facility] [address] [place] [address] PCP - General Pediatrics 08/19/18 08/22/24 Luis Felipe Briseno APRN [address] [facility] [address] [place] [phone] PCP - General Family Medicine 08/23/24 documented as of this encounter
--- OUTSIDE RECORDS SUMMARY | 2024-12-13 20:23 | XMS_ITS | Encounter Summary ---
Author Organization [facility] Address [address] [place] [address] Care Team Providers Care Digital Sales Manager Name Role Phone Luis Felipe Briseno Aziza LALA Primary Care Provider [phone] Source Comments In the event this information is protected by the Federal Confidentiality of Alcohol and Drug AbusePatient Records regulations: The Federal rules restrict any use of the information to criminally investigate or prosecute any alcohol or drug abuse patient.[facility] Encounter Details Date Type Department Care Team (Latest Contact Info) Description 11/16/2024 Travel Social History Tobacco Use Types Packs/Day Years Used Date Smoking Tobacco: Never Smokeless Tobacco: Never Comments:Father and pt uncle use smokeless tobacco. PHQ-2 Answer Date Recorded PHQ-2 score 2 10/17/2023 Area Deprivation Index Answer Date Jewel rded National Score (1-100), lower number is lower ri sk 9 10/05/2024 State Score (1-10), lower number is lower risk 1 10/05/2024 Data from: https://www.neighborhoodatlas.medicine.[facility].edu/. Last address used for calculation [address] [facility] 10/05/2024 Comments No Sex and Gender Information [...] Salma Russo RN documented in this encounter Plan of Treatment Not on file documented as of this encounter Visit Diagnoses Not on filedocumented in this encounter Care Teams Digital Sales Manager Relationship Specialty Start Date End Date Luis Felipe Briseno APRN [address] [address] PCP - General Family Medicine 08/23/24 documented as of this encounter
--- OUTSIDE RECORDS SUMMARY | 2024-12-13 20:23 | XMS_ITS | Encounter Summary ---
Author Organization [facility] Address [address] [place] [address] Care Team Providers Care Copy Operator Name Role Phone Luis Felipe Briseno SPIKE Primary Care Provider [phone] Source Comments In the event this information is protected by the Federal Confidentiality of Alcohol and Drug AbusePatient Records regulations: The Federal rules restrict any use of the information to criminally investigate or prosecute any alcohol or drug abuse patient.[facility] Encounter Details Date Type Department Care Team (Late st Contact Info) Description 12/03/2024 Orders Only Pseudo CARD EPS MAIN Pseudo Department Only [facility] Kamala Walker MD [address] [place] [address] Social History Tobacco Use Types Packs/Day Years Used Date Smoking Tobacco: Never Smokeless Tobacco: Never Comments:Father and pt uncle use smokeless tobacco. PHQ-2 Answer Date Recorded PHQ-2 score 2 10/17/2023 Area Deprivation Index Answer Date Jewel rded National Score (1-100), lower number is lower ri sk 9 10/05/2024 State Score (1-10), lower number is lower risk 1 10/05/2024 Data from: https://www.neighborhoodatlas.[facility]/. Last address used for calculation [address] [facility] 10/05/2024 Comments No Sex and Gender Information [...] Procedure Name Priority Date/Time Associated Diagnosis Comments CARDIAC IMPLANTABLE DEVICE CHECK REMOTE Routine 12/03/2024 11:10 PM EDT documented in this encounter Results * CARDIAC IMPLANTABLE DEVICE CHECK REMOTE (12/03/2024 11:10 PM EDT) Date Time Interrogation Session [id number] [facility] Type Interrogation Session Remote MURJ CARDIAC Implantable Pulse Generator Core Checker [employer] MURJ CARDIAC Implantable Pulse Generator Type Other MURJ CARDIAC Implantable Pulse Generator Model [id number] MURJ CARDIAC Implantable Pulse Generator Serial Number [id number] MURJ CARDIAC Implantable Pulse Generator Implant Date [id number] MURJ CARDIAC 12/03/2024 11:1 0 PM EDT Narrative [facility] - 12/11/2024 6:14 PM EDT Normal Remote: No Events Summary : 03-Nov-2024 to 04-Dec-2024 * This is a normal remote diagnostic device check * Alerts or events: 1 symptom * Battery data was reviewed * Battery status: Good, * Presenting rhythm reviewed: SR at 75 bpm. * Heart Rate Histograms reviewed Patient Triggered * Patient triggered event with symptom(s)Dizzy / Lightheaded, Faint Not at all active * Clinical arrhythmia during triggered event: SR( HR 80-100 bpm)___ * Total patient triggered episodes: 1 NOTE TO PROVIDERS: Cardiac Implanted Devices Flowsheets contain detailed Programming and Evaluation data. Full Docket/PDF found below under Scanned Documents. Procedure Note Kamala Walker MD - 12/11/2024 Normal Remote: No Events Summary : 03-Nov-2024 to 04-Dec-2024 * This is a normal remote diagnostic device check * Alerts or events: 1 symptom * Battery data was reviewed * Battery status: Good, * Presenting rhythm reviewed: SR at 75 bpm. * Heart Rate Histograms reviewed Patient Triggered * Patient triggered event with symptom(s)Dizzy / Lightheaded, Faint Notat all active * Clinical arrhythmia during triggered event: SR( HR 80-100 bpm)___ * Total patient triggered episodes: 1 NOTE TO PROVIDERS: Cardiac Implanted Devices Flowsheets contain detailedProgramming and Evaluation data. Full Docket/PDF found below underScanned Documents. Kamala Walker MD CARDIOLOGY Final Result [facility] documented in this encounter Visit Diagnoses Not on filedocumented in this encounter Care Teams Copy Operator Relationship Specialty Start Date End Date Luis Felipe Briseno APRN [address] [facility] [address] [place] [address] PCP - General Family Medicine 08/23/24 documented as of this encounter
--- OUTSIDE RECORDS SUMMARY | 2024-12-13 20:23 | XMS_ITS | Clinical Summary ---
Author Organization [facility] Address [address] [place] [address] Care Team Providers Care Shipping Point Inspector Name Role Phone Pcp, No Primary Care [...] and Fami ly Not on file 10/02/2021 Interpersonal Safety Answer Date Record ed Are you being hit, kicked, p ushed or yelled at (see row info)? No 07/15/2024 Interpersonal Safety Abuse 12 - 18 Not on file 07/15/2024 Interpersonal Safety Ambulatory Vulnerability No t on file 07/15/2024 Comments Unknown Sex and Gender Information Value Date Recorded Sex Assigned at Not on file Legal Sex Female 8:22 PM CDT Gender Identity Not on file Sexual Orientation Not on file Obstetrics History Last Filed Vital Signs Vital Sign Reading Time Taken Comments Blood Pressure 121/63 07/15/2024 6:30 PM CDT Pulse 53 07/15/2024 6:30 PM CDT Temperature 36.8 C (98.3 F) 07/15/2024 4:00 PM CDT Respiratory Rate 20 07/15/2024 4:03 PM CDT Oxygen Saturation 100% 07/15/2024 6:30 PM CDT Inhaled Oxygen Concentration - - Weight 54.3 kg (119 lb 11.2 oz) 07/15/2024 4:01 PM CDT Height 165.1 cm (5' 5) 07/15/2024 4:00 PM CDT Body Mass Index 19.92 07/15/2024 4:00 PM CDT Plan of Treatment Health Maintenance Due Date Last Done Comments Tetanus booster 2013 Depression screening for age 12+ 2014 HIV for age 15-65 2017 HPV series for age 9-45 (1 - 3-dose series) 2017 Chlamydia for age 16-24 2018 BMI (ht and wt on same day) for age 18+ 2020 Hepatitis C screening for age 18-79 2020 Hepatitis B series for 19+ ( 1 of 3 - 19+ 3-dose series) 2021 Pneumococcal series for age 6-49 (1 of 2 - PCV) 2021 06/18/2004 Pap test for age 21-65 05/22/2023 COVID-19 vaccine series ( - season) 2024 Influenza Vaccine (#1) 2024 01/14/2005, 02/22/2003 RSV vaccine for adults or pr egnancy (1 - 1-dose 75+ series) 2077 Insurance [employer] Care Teams Shipping Point Inspector Relationship Specialty Start Date End Date Pcp, No . PCP - General 07/24/21
--- OUTSIDE RECORDS SUMMARY | 2024-12-13 20:23 | XMS_ITS | Clinical Summary ---
Author Organization [facility] Address [address] [place] [address] [place] [address] Care Team Providers Care Hotel Concierge Name Role Phone Luis Felipe Briseno GOLF COURSE ASSISTANT-WOOD CUT ENGRAVER Primary Care Provider + Allergies No known active allergies Medications Ondansetron 4 MG Tab Dispersible tablet Take 1 tablet by mouth 2 times daily as needed for Nausea / Vomiting. 30 tablet 1 09/24/2024 Active lamoTRIgine 100 MG tablet Take 1 tablet by mouth 2 times daily. 60 tablet 1 10/04/2024 Active Ernest 450 MG Tab CR Take 2 tablets by mouth at bedtime. 60 tablet 1 10/04/2024 Active hydrOXYzine HCl 25 MG tablet Take 1 tablet by mouth 3 times daily as needed for Anxiety or Insomnia. 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): s/p repair 2004 Congenital mitral insufficiency 08/22/2018 Sinus bradycardia 08/22/2018 Encounters Date Type Department Care Team Description 10/12/2024 3:00 PM EDT Clinical Support Encounter Partial Hospitalization [address] [place] [phone] Jerald Cee MD Major depressive disorder, recurrent episode, moderate (Primary Dx); Generalized anxiety disorder; Borderline personality disorder 10/11/2024 3:00 PM EDT Clinical Support Encounter Partial Hospitalization [address] [place] [address] Jerald Cee MD Major depressive disorder, recurrent episode, moderate (Primary Dx); Generalized anxiety disorder 10/11/2024 Plan of Care Documentation Partial Hospitalization [address] [place] [address] 10/11/2024 Documentation Only Partial Hospitalization [address] [place] [address] Liz Gardner, OLE 10/05/2024 Documentation Only Partial Hospitalization [address] [place] [phone] Kristin Kaur, SECRETARY RECEPTIONIST 10/04/2024 3:00 PM EDT Clinical Support Encounter Partial Hospitalization [address] [place] [address] Jerald Cee MD Hess, Eric M, GOLF COURSE ASSISTANT-WOOD CUT ENGRAVER Major depressive disorder, recurrent episode, moderate (Primary Dx); Generalized anxiety disorder; Borderline personality disorder 09/30/2024 3:00 PM EDT Clinical Support Encounter Partial Hospitalization [address] [place] [phone] Jerald Cee MD Major depressive disorder, recurrent episode, moderate (Primary Dx); Generalized anxiety disorder; Borderline personality disorder 09/30/2024 Plan of Care Documentation Partial Hospitalization [address] [place] [phone] 09/30/2024 Documentation Only Partial Hospitalization [address] [place] [phone] Liz GardnerOLE 09/28/2024 3:00 PM EDT Clinical Support Encounter Partial Hospitalization [address] [place] [phone] Jerald Cee MD Major depressive disorder, recurrent episode, moderate (Primary Dx); Generalized anxiety disorder; Borderline personality disorder 09/27/2024 3:00 PM EDT Clinical Support Encounter Partial Hospitalization [address] [place] [address] Jerald Cee MD Major depressive disorder, recurrent episode, moderate (Primary Dx); Borderline personality disorder; Generalized anxiety disorder 09/23/2024 3:00 PM EDT Clinical Support Encounter Partial Hospitalization [address] [place] [phone] Jerald Cee MD Hess, Eric M, GOLF COURSE ASSISTANT-WOOD CUT ENGRAVER Major depressive disorder, recurrent episode, moderate (Primary Dx); Borderline personality disorder; Generalized anxiety disorder 09/23/2024 Plan of Care Documentation Partial Hospitalization [address] [place] [address] 09/23/2024 Documentation Only Partial Hospitalization [address] [place] [address] Liz Gardner LISW 09/21/2024 4:00 PM EDT Clinical Support Encounter Partial Hospitalization [address] [place] [phone] Jerald Cee MD Generalized anxiety disorder (Primary Dx); Borderline personality disorder; Major depressive disorder, recurrent episode, moderate 09/20/2024 Documentation Only Partial Hospitalization [address] [place] [address] Noe Torres, GOLF COURSE ASSISTANT-WOOD CUT ENGRAVER 09/16/2024 4:00 PM EDT Clinical Support Encounter Partial Hospitalization [address] [place] [phone] Jerald Cee MD Generalized anxiety disorder (Primary Dx); Borderline personality disorder 09/16/2024 Telephone Partial Hospitalization [address] [place] [address] Kristin Kaur, OLE Other 09/16/2024 Plan of Care Documentation Partial Hospitalization [address] [place] [address] 09/16/2024 Documentation Only Partial Hospitalization [address] [place] [address] Liz Gardner LISW 09/14/2024 4:00 PM EDT Clinical Support Encounter Partial Hospitalization [address] [place] [address] Jerald Cee MD Generalized anxiety disorder (Primary Dx); Borderline personality disorder; Major depressive disorder, recurrent episode, moderate 09/14/2024 Refill [facility] [address] [place] [address] [place] [address] Jerald Cee MD 09/14/2024 Refill [facility] [address] [place] [address] [place] [address] Jerald Cee MD 09/13/2024 4:00 PM EDT Clinical Support Encounter Partial Hospitalization [address] [place] [address] Jerald Cee MD Generalized anxiety disorder (Primary Dx); Borderline personality disorder; Major depressive disorder, recurrent episode, moderate from Last 3 Months Immunizations Immunization Administration Dates Next Due DTaP 07/10/2006, 4,02/22/2003,2002,2002 HIB Vaccine, PRP-OMP 06/18/2004,12/08/19 03,2002,2002 INACTIVATED POLIOVIRUS (IPV) 07/10/2006,01/15/20 05 Influenza Vaccine, Trivalent 01/06/2006,01/15/20 05,02/22/2003 Pneumococcal Conjugate 7-Ines ent Vac <5yo, IM 06/18/2004 Family History Medical History Relation Name Comments No known problems Brother Myocardial Infarction Father 50-60s Prostate Cancer Father Cancer- Other Maternal Grandfather Unknwo n Skin Cancer Maternal Grandmother Prostate Cancer Paternal Grandfather Diabetes Paternal Grandmother Relation Name Status Comments Brother Alive Father Alive Maternal Grandfather Maternal Grandmother Alive Mother Alive Paternal Grandfather Alive Paternal Grandmother Social History Tobacco Use Types Packs/Day Years Used Date Smoking Tobacco: Never Smokeless Tobacco: Never Tobacco Cessation:Counseling Given: Not Answered Comments:Off and on in college Alcohol Use Standard Drinks/Week Comments Yes 0 [...] Orientation Bisexual 08/09/2024 9: 10 PM EDT Last Filed Vital Signs Vital Sign Reading Time Taken Comments Blood Pressure 126/74 09/24/2024 1:21 PM EDT Pulse 84 09/24/2024 1:21 PM EDT Temperature 36.6 C (97.9 F) 10/17/2022 11:12 AM EDT Respiratory Rate 16 09/01/2023 10:00 AM EDT Oxygen Saturation 100% 09/01/2023 10:00 AM EDT Inhaled Oxygen Concentration - - Weight 55.3 kg (122 lb) 10/09/2023 2:11 PM EDT Height 163.8 cm (5' 4.5) 10/09/2023 2:11 PM EDT Body Mass Index 20.62 10/09/2023 2:11 PM EDT Plan of Treatment Health Maintenance Due Date Last Done Comments PNEUMOCOCCAL VACCINE SERIES (2 of 2 - PCV) 09/22/2009 09/22/2008, 06/18/2004 HPV VACCINE ADOL (1 - 3-dose series) 2017 HPV VACCINE (1 - 3-dose series) 2017 CERVICAL CANCER SCREENING DISCUSSION 10/08/2024 10/09/2023 CHLAMYDIA SCREEN 10/08/2024 10/09/2023 GONORRHEA SCREEN 10/08/2024 10/09/2023 PREVENTATIVE HEALTH VISIT 10/08/2024 10/09/2023 COVID-19 VACCINE (5 - 2024-2 6 season) 2024 03/08/2022, 03/06/2021, 05/23/2020, Additional history exists INFLUENZA VACCINE (#1) 2024 , 12/08/2015, 12/02/2014, Additional history exists TETANUS 07/04/2032 07/04/2022, 08/08, 07/10/2006, Additional history exists HIB VACCINE Discontinued 06/18/2004, 11/10, 2002, Additional history exists MMR VACCINE Discontinued 07/10/2006, 07/15/2005 HEP A VACCINE Discontinued 07/09/2011, 06/25/2010 VARICELLA VACCINE Discontinued 08/14/2011, 06/25/2010 HEP B VACCINE Completed 09/29/2012, 08/2011, 07/09/2011 MCV4 VACCINE Discontinued 02/09/2020, 08/22/2014 DTAP/TDAP/TD VACCINE Discontinued 07/04/2022, 08/22/2014, 07/10/2006, Additional history exists TDAP (ADULT) Completed 07/04/2022, 08/08, 07/10/2006, Additional history exists HEPATITIS C VIRUS SCREENING Completed 10/09/2023 HIV SCREENING DISCUSSION Completed 10/09/2023 Procedures Procedure Name Priority Date/Time Associated Diagnosis Comments HIV 1 AND 2 ANTIBODIES/P24 ANTIGEN Routine 10/09/2023 3:03 PM EDT Encounter for annual routine gynecological examination Screening for STDs (sexually transmitted diseases) HEPATITIS C ANTIBODY Routine 10/09/2023 3:03 PM EDT Encounter for annual routine gynecological examination Screening for STDs (sexually transmitted diseases) NEISSERIA GONORRHOEAE BY PCR(VAGINITIS PANEL) Routine 10/09/2023 2:59 PM EDT Encounter for annual routine gynecological examination Screening for STDs (sexually transmitted diseases) CHLAMYDIA TRACHOMATIS BY PCR(VAGINITIS PANEL) Routine 10/09/2023 2:59 PM EDT Encounter for annual routine gynecological examination Screening for STDs (sexually transmitted diseases) CYTOLOGY-OUTSIDE SALES CONSULTANT, LIQUID BASED Routine 10/09/2023 2:59 PM EDT Encounter for annual routine gynecological examination from Last 3 Months or Most Recently Relevant to Health Maintenance Results * HIV 1 AND 2 ANTIBODIES/P24 ANTIGEN (10/09/2023 3:03 PM EDT) Pathologist [facility] HIV-1/HIV-2 Ab With p24 Antigen Non Reactive Non Reactive 10/09/2023 9:28 PM EDT [facility] Blood Venipuncture / Unknown 10/09/2023 3:03 PM EDT 10/09/2023 3:21 PM EDT [facility] IMMUNOLOGY ORDERABLES Livia l Result Performing Organization Address [facility]/ZIP Co de Phone Number [facility] [address] [place] [address] * HEPATITIS C ANTIBODY (10/09/2023 3:03 PM EDT) Pathologist [facility] Hepatitis C Antibody Negative Negative 10/09/2023 9:42 PM EDT [facility] Blood Venipuncture / Unknown 10/09/2023 3:03 PM EDT 10/09/2023 3:21 PM EDT [facility] E Wayne GOLF COURSE ASSISTANT-[facility] IMMUNOLOGY ORDERABLES Livia l Result Performing Organization Address [facility]/ZIP Co de Phone Number [facility] [address] [place] [address] * NEISSERIA GONORRHOEAE BY PCR(VAGINITIS PANEL) (10/09/2023 2:59 PM EDT) Pathologist [facility] Neisseria gonorrhea Amplified Probe Not Detected Not Detected HOLOGIC PANTHER 10/10/2023 6:10 AM EDT [facility] Comment:A negative test resu lt for Neisseria gonorrhoeae does not preclude the possibility of infection. Results should be considered in conjunction with other clinical and laboratory findings. Genital Fluid/Swab SPECIMEN FROM VAGINA / Unknown 10/09/2023 2:59 PM EDT 10/09/2023 3:20 PM EDT Narrative [facility] - 10/10/2023 6:10 AM EDT This test was performed using Cold Rolling Supervisor Mediated Amplification for the detection of Chlamydia trachomatis and/or Neisseria gonorrhoeae nucleic acid. This assay is not intended for the evaluation of suspected sexual abuse or other medico-legal indications. Socorro Black APRNPARKLAND HEALTH CENTERShari MICROBIOLOGY - GENERAL ORD ERABLES Final Result Performing Organization Address City/[facility]/ZIP Co de Phone Number [facility] [address] [place] [address] * CHLAMYDIA TRACHOMATIS BY PCR(VAGINITIS PANEL) (10/09/2023 2:59 PM EDT) Chlamydia trachomatis Amplified Probe Not Detected Not Detected [facility] 10/10/2023 6:10 AM EDT [facility] Comment:A negative test resu lt for Chlamydia trachomatis does not preclude the possibility of infection. Results should be considered in conjunction with other clinical and laboratory findings. Genital Fluid/Swab SPECIMEN FROM VAGINA / Unknown 10/09/2023 2:59 PM EDT 10/09/2023 3:20 PM EDT Narrative [facility] - 10/10/2023 6:10 AM EDT This test was performed using Cold Rolling Supervisor Mediated Amplification for the detection of Chlamydia trachomatis and/or Neisseria gonorrhoeae nucleic acid. This assay is not intended for the evaluation of suspected sexual abuse or other medico-legal indications. Socorro Black APRNPARKLAND HEALTH CENTERShari MICROBIOLOGY - GENERAL ORD ERABLES Final Result Performing Organization Address City/[facility]/ZIP Co de Phone Number [facility] [address] [place] [address] * CYTOLOGY-OUTSIDE SALES CONSULTANT, LIQUID BASED (10/09/2023 2:59 PM EDT) Case Report Gynecologic Cytology Report Case: [id number] Authorizing Provider: HENNY Puga Collected: 10/09/2023 02:59 PM Ordering Location: Obstetrics and Gynecology Received: 10/09/2023 03:20 PM Outpatient Care Em Shultz Screen: Steve Joe Specimen: Cervical/Endocervi dedrick, ThinPrep, Cervical/Endocervi dedrick 10/17/2023 2:38 PM EDT [facility] LMP see comment 10/17/2023 2:38 PM EDT [facility] Specimen Adequacy Satisfactory For Evaluation; Endocervical/Trans formation Zone Component Present. 10/17/2023 2:38 PM EDT [facility] ---Cytologic Interpretati on--- Negative for Intraepithelial Lesion or Malignancy This ThinPrep Specimen was Processed Using Glacial Acetic Acid, This specimen was processed with the [employer] Imaging System but manually reviewed for technical reasons HPV Testing Was Not Performed Due To The Results Of This Pap Test Cervical Cytology is a screening test primarily for squamous cancers and its precursors and has associated false-negative and false-positive results. This Pap Test was imaged with the assistance of the [employer] ThinPrep Imaging System and screened by a Silo Man. 10/17/2023 2:38 PM EDT [facility] at 1438 EDT PAP METHOD ThinPrep 10/17/2023 2:38 PM EDT [facility] Images 10/17/2023 2:38 PM EDT [facility] HPV Reflex? HPV HR with genotyping if ASCUS (25-29) 10/17/2023 2:38 PM EDT [facility] For Immediate Release to [facility] Yes Yes 10/17/2023 2:38 PM EDT [facility] Fluid, Unspecified (Cervical/Endocervi dedrick) 10/09/2023 2:59 PM EDT 10/09/2023 3:20 PM EDT us Socorro INMAN CYTOLOGY Final Resu lt [facility] [address] [place] [address] from Last 3 Months or Most Recently Relevant to Health Maintenance Insurance MMO Care Teams Hotel Concierge Relationship Specialty Start Date End Date Luis Felipe Briseno APRN-WOOD CUT ENGRAVER PCP - General Certified Nurse Practitioner 08/16/22
--- OUTSIDE RECORDS SUMMARY | 2024-12-13 20:23 | XMS_ITS | Clinical Summary ---
Author Organization [facility] Address [address] [place] [address] Care Team Providers Care Public Address System Operator Name Role Phone Luis Felipe Briseno Aziza LALA Primary Care Provider [phone] Allergies No known active allergies Medications * This document contains information received from the source organization and may not represent a complete record from that organization. lamoTRIgine (LAMICTAL) 100 mg tablet Take 200 mg by mouth every morning. 5 Active lithium carbonate ER 300 mg CR tablet 900 mg Active ondansetron orally disintegrating (ZOFRAN ODT) 4 mg disintegrating tablet TAKE TWO TABLETS BY MOUTH AND allow TO dissolve every EIGHT hours as needed 5 Active QUEtiapine (SEROQUEL) 25 mg tablet TAKE ONE-HALF (0.5) TABLETS BY MOUTH THREE TIMES DAILY NEEDED 5 Active hydrOXYzine pamoate (VISTARIL) 25 mg capsule Take 25 mg by mouth once daily as needed. Active Active Problems Problem Noted Date Diagnosed Date Bradycardia 10/02/2021 Congenital mitral regurgitation 08/22/2018 Sinus bradycardia 08/22/2018 Encounters Date Type Department Care Team Description 12/03/2024 Orders Only Pseudo [id number] Eri Walker MD 11/16/2024 8:10 AM EDT [facility] Pediatric Cardiology [address] [place] [address] Eri Walker MD Status post placement of implantable loop recorder (Primary Dx); Sinus bradycardia; Moderate mitral regurgitation 11/16/2024 Travel 11/02/2024 Orders Only Pseudo [place] [id number] Eri Walker MD 10/22/2024 Telephone Pediatric Cardiology [address] [place] [address] Marisol Bautista RN Results (Remote check - Pause); Care Coordination 10/20/2024 Orders Only Pseudo [id number] Eri Walker MD 10/07/2024 2:17 PM EDT Anesthesia Event HOSP EP Lab [address] [place] [address] Kady Mejía MD 10/07/2024 1:00 PM EDT - 10/07/2024 2:10 PM EDT Surgery [facility] EP Lab [address] [place] [address] Eri Walker MD REMOVAL SUBCUTANEOUS CARDIAC RHYTHM MONITOR 10/07/2024 11:08 AM EDT - 10/07/2024 4:51 PM EDT Hospital Encounter [id number] [address] [place] [address] Eri Walker MD Syncope and collapse [R55], Sinus node dysfunction (HCC) [I49.5], Bradycardia [R00.1], PVC (premature ventricular contraction) [I49.3] Discharge Disposition: Home 10/07/2024 Travel 10/06/2024 Education Cardiology [address] [place] [address] Eri Walker MD Patient Education (Loop Removal/ Reimplant ) 10/02/2024 Orders Only Pseudo [place] [id number] Eri Walker MD 09/22/2024 Patient Msg Pediatric Cardiology [address] [place] [id number] Eri Walker MD IMPORTANT: Pre-Procedure Instructions 09/16/2024 Patient Msg Pediatric Cardiology [address] [place] [address] Eri Walker MD Pre/Post Procedure Appointments 09/16/2024 Telephone [address] [place] [address] Eri Walker MD Schedule Surgery (EPS-Loop Removal / Reimplant) 09/15/2024 Telephone Pediatric Cardiology [address] [place] [address] Eri Walker MD Procedure (Scheduling [Loop Ext/Reimp]) 09/15/2024 Telephone Pediatric Cardiology [address] [place] [address] Eri Walker MD Care Coordination (Scheduling EP Procedure) from Last 3 Months Social History Tobacco Use Types Packs/Day Years Used Date Smoking Tobacco: Never Smokeless Tobacco: Never Tobacco Cessation:Counseling Given: Not Answered Comments:Father and pt uncle use smokeless tobacco. PHQ-2 Answer Date Recorded PHQ-2 score 2 10/17/2023 Area Deprivation Index Answer Date Jewel rded National Score (1-100), lower number is lower ri sk 9 10/05/2024 State Score (1-10), lower number is lower risk 1 10/05/2024 Data from: https://www.neighborhoodatlas.[facility]/. Last address used for calculation [address] 10/05/2024 Comments No Sex and Gender Information Value Date Recorded Sex Assigned at Not on file Legal Sex Female 11:54 AM EDT Gender Identity Not on file Sexual Orientation Not on file Last Filed Vital Signs Vital Sign Reading Time Taken Comments Blood Pressure 112/53 10/07/2024 4:15 PM EDT Pulse 55 10/07/2024 4:15 PM EDT Temperature 37.4 C (99.4 F) 10/07/2024 12:08 PM EDT Respiratory Rate 20 10/07/2024 4:15 PM EDT Oxygen Saturation 99% 10/07/2024 4:15 PM EDT Inhaled Oxygen Concentration - - Weight 55.1 kg (121 lb 6.4 oz) 10/07/2024 12:08 PM EDT Height 165.4 cm (5' 5.12) 08/23/2024 1:26 AM ED T Body Mass Index 20.13 08/23/2024 1:26 AM EDT Plan of Treatment Health Maintenance Due Date Last Done Comments Peds To Adult Transition Ini tial Discussion 2014 Peds To Adult Transition Ami ual Assessment 2016 HPV Vaccine (1 - 3-dose series) 2017 Anxiety Screening 2020 Chlamydia Screening (18-24) 2020 Depression Screening 2020 GC (Gonorrhea) Screening (18-24) 2020 Cervical Cancer Screening 05/22/2023 Covid-19 Vaccine (5 - 2024-2 6 season) 2024 03/08/2022, 03/06/2021, 05/23/2020, Additional history exists Influenza Vaccine (#1) 2024 , 12/08/2015, 12/02/2014, Additional history exists DTaP,Tdap,Td Vaccine (8 - Td or Tdap) 07/04/2032 07/04/2022, 08/22/2014, 07/10/2006, Additional history exists Hepatitis B Vaccine Completed 09/29/2012, 08/14/2011, 07/09/2011 Meningococcal B Vaccine Completed 07/04/2022, 03/29 HIV Screening Completed 10/09/2023 Hepatitis C Screening Completed 10/09/2023 Medical Devices Implanted Type Area Box Toe Buffer Device Identifier Shelf Expiration Date Model / Serial / Lot Loop Recorder-[id number] Linq [id number]- 2023 Implanted:05/09 (Quantity not on file) Implant [employer] LNQ22 LINQ II / [id number] / [id number] Lnq22 [id number] Implanted:09/09 (Quantity not on file) Loop Recorder [employer] LNQ22 / [id number] / Procedures Procedure Name Priority Date/Time Associated Diagnosis Comments CARDIAC IMPLANTABLE DEVICE CHECK REMOTE Routine 12/03/2024 11:10 PM EDT CARDIAC IMPLANTABLE DEVICE CHECK REMOTE Routine 11/02/2024 11:18 PM EDT REM INTERROG SCRMS <30 D PHYS/QHP Routine 10/20/2024 12:13 AM EDT EPS: LOOP RECORDER 10/07/2024 2: 49 PM EDT SURGICAL PATHOLOGY Routine 10/07/2024 2: 41 PM EDT Syncope and collapse Sinus node dysfunction (HCC) Bradycardia PVC (premature ventricular contraction) INSERTION SUBQ CARDIAC RHYTHM MONITOR W/PRGRMG 10/07/2024 2:15 PM EDT Syncope and collapse Sinus node dysfunction (HCC) Bradycardia PVC (premature ventricular contraction) REMOVAL SUBCUTANEOUS CARDIAC RHYTHM MONITOR 10/07/2024 2:15 PM EDT Syncope and collapse Sinus node dysfunction (HCC) Bradycardia PVC (premature ventricular contraction) COMPREHENSIVE METABOLIC PANEL STAT 10/07/2024 12:13 PM EDT REM INTERROG SCRMS <30 D PHYS/QHP Routine 10/02/2024 11:10 PM EDT from Last 3 Months Results * CARDIAC IMPLANTABLE DEVICE CHECK REMOTE (12/03/2024 11:10 PM EDT) Date Time Interrogation Session [id number] MURJ CARDIAC Type Interrogation Session Remote MURJ CARDIAC Implantable Pulse Generator Box Toe Buffer Medtronic MURJ CARDIAC Implantable Pulse Generator Type Other MURJ CARDIAC Implantable Pulse Generator Model LNQ22 MURJ CARDIAC Implantable Pulse Generator Serial Number [id number] MURJ CARDIAC Implantable Pulse Generator Implant Date [id number] MURJ CARDIAC 12/03/2024 11:1 0 PM EDT Narrative MURJ CARDIAC - 12/11/2024 6:14 PM EDT Normal [...] found below under Scanned Documents. Procedure Note Eri Walker MD - 12/11/2024 Normal Remote: No [...] data. Full Docket/PDF found below underScanned Documents. Eri Walker MD CARDIOLOGY Final Result MURJ CARDIAC * CARDIAC IMPLANTABLE DEVICE CHECK REMOTE (11/02/2024 11:18 PM EDT) Date Time Interrogation Session [id number] MURJ CARDIAC Type Interrogation Session Remote MURJ CARDIAC Implantable Pulse Generator Box Toe Buffer Medtronic MURJ CARDIAC Implantable Pulse Generator Type Other MURJ CARDIAC Implantable Pulse Generator Model LNQ22 MURJ CARDIAC Implantable Pulse Generator Serial Number [id number] MURJ CARDIAC Implantable Pulse Generator Implant Date [id number] MURJ CARDIAC 11/02/2024 11:1 8 PM EDT Narrative MURJ CARDIAC - 11/16/2024 10:58 AM EDT Normal Remote: No Events >Summary 03-Oct-2024 to 03-Nov-2024 * This is a normal remote diagnostic device check * Alerts or events: 1 symptom and 1 pause (both previously reported). * Battery data was reviewed * Battery status: Good * Presenting rhythm reviewed SR, ~72 bpm. * Heart Rate Histograms reviewed * PVCs (% beats) 6.1% Premature Ventricular Contraction (PVC) PVCs (% beats) 6.1% NOTE TO PROVIDERS: Cardiac Implanted Devices Flowsheets contain detailed Programming and Evaluation data. Full Docket/PDF found below under Scanned Documents. Procedure Note Eri Walker MD - 11/16/2024 Normal Remote: No Events >Summary 03-Oct-2024 to 03-Nov-2024 * This is a normal remote diagnostic device check * Alerts or events: 1 symptom and 1 pause (both previously reported). * Battery data was reviewed * Battery status: Good * Presenting rhythm reviewed SR, ~72 bpm. * Heart Rate Histograms reviewed * PVCs (% beats) 6.1% Premature Ventricular Contraction (PVC) PVCs (% beats) 6.1% NOTE TO PROVIDERS: Cardiac Implanted Devices Flowsheets contain detailedProgramming and Evaluation data. Full Docket/PDF found below underScanned Documents. Eri Walker MD CARDIOLOGY Final Result MURJ CARDIAC * CARDIAC IMPLANTABLE DEVICE CHECK REMOTE (10/20/2024 12:13 AM EDT) Date Time Interrogation Session [id number] MURJ CARDIAC Type Interrogation Session Remote MURJ CARDIAC Implantable Pulse Generator Box Toe Buffer Medtronic MURJ CARDIAC Implantable Pulse Generator Type Other MURJ CARDIAC Implantable Pulse Generator Model LNQ22 MURJ CARDIAC Implantable Pulse Generator Serial Number [id number] MURJ CARDIAC Implantable Pulse Generator Implant Date [id number] MURJ CARDIAC Battery Status OK MURJ CARDIAC Zone Setting Type Category Tay MURJ CARDIAC Rate 1 30 MURJ CARDIAC Zone Setting Detection Details 4 MURJ CARDIAC Zone Setting Status On MURJ CARDIAC Zone ID 1 MURJ CARDIAC Zone Setting Type Category Pause MURJ CARDIAC Rate 1 3 MURJ CARDIAC Zone Setting Status On MURJ CARDIAC Zone ID 2 MURJ CARDIAC Zone Setting Type Category AF MURJ CARDIAC Zone Setting Status On MURJ CARDIAC Zone ID 3 MURJ CARDIAC Zone Setting Type Category AT MURJ CARDIAC Zone Setting Status Off MURJ CARDIAC Zone ID 4 MURJ CARDIAC Zone Setting Type Category Tachy MURJ CARDIAC Rate 1 207 MURJ CARDIAC Zone Setting Detection Details 16 MURJ CARDIAC Zone Setting Status On MURJ CARDIAC Zone ID 7 MURJ CARDIAC 10/20/2024 12:1 3 AM EDT Narrative MURJ CARDIAC - 10/28/2024 12:12 PM EDT Normal Sinus Rhythm * Stored EGMs are consistent with or [...] of my chest. I am pretty sure it?s healing but I will record it * Stored EGMs are consistent with or suggestive of no arrhythmia(s) * Total patient triggered episodes: 1 Pause * Stored EGMs are consistent with or suggestive of a Pause * Total episodes: 1 * Longest episode: 4 seconds * Rhythm before episode: SR * Rhythm after episode: SR NOTE TO PROVIDERS: Cardiac Implanted Devices Flowsheets contain detailed Programming and Evaluation data. Full Docket/PDF found below under Scanned Documents. Procedure Note Eri Walker MD - 10/28/2024 Normal Sinus Rhythm * Stored EGMs are consistent with or suggestive of Normal Sinus Rhythm *Current ecg- ST 100 bpm. * PVCs (% beats) 6.0% Patient Triggered: No Arrhythmia * Patient triggered event with symptom(s) Other A little active Notsure if this is just healing but I have been getting pain on the top partof the left side of my chest. I am pretty sure it s healing but Iwill record it * Stored EGMs are consistent with or suggestive of no arrhythmia(s) * Total patient triggered episodes: 1 Pause * Stored EGMs are consistent with or suggestive of a Pause * Total episodes: 1 * Longest episode: 4 seconds * Rhythm before episode: SR * Rhythm after episode: SR NOTE TO PROVIDERS: Cardiac Implanted Devices Flowsheets contain detailedProgramming and Evaluation data. Full Docket/PDF found below underScanned Documents. us Eri Walker MD CARDIOLOGY Final Result MURJ CARDIAC * EPS: LOOP RECORDER (10/07/2024 2:49 PM EDT) 10/07/2024 2:49 PM EDT [facility] - 10/11/2024 10:46 AM EDT Final Report Cardiac Electrophysiology Laboratory [address] [place] [address] The entire procedure was performed by the Staff Physician with the assistance of the Fellow. This report has been electronically signed on 10/11/2024 10:46 by ERI WALKER MD Type of Procedure: Loop Recorder Device: - Exchange of a [employer] LINQ II LNQ22 loop recorder with a [employer] LINQ II LNQ22 loop recorder. Room: EP Lab 1 Date of service: 10/07/2024 Patient entered lab: 02:15 PM Incision Time: 02:49 PM End Time: 03:15 PM A unit dose applicator was used. Alcohol based prep was not allowed to soak into patient's hair or linens. Towels were used to absorb excess and were removed prior to draping. The prep solution was completely dry prior to draping. Antibiotic cefazolin 2000 mg IV given at 02:31 PM by Rafael ZHOU Shari Antibiotic cefazolin 2000 mg IV completed at 03:01 PM by Rafael ZHOU Shari Antibiotic cefazolin 2000 mg IV given at 02:32 PM by cardiac anesthesia Indications for procedure: Symptoms suspected to be due to a cardiac cause and/or an arrhythmia. Syncope or near syncope. Preoperative diagnosis: Symptoms suspected to be due to a cardiac cause and/or an arrhythmia. Syncope or near syncope. Postoperative diagnosis: Symptoms suspected to be due to a cardiac cause and/or an arrhythmia. Syncope or near syncope. Patient History: Alok is a 24 year old female with history of transitional AV canal status post repair in 2004 with residual mild to moderate mitral regurgitation, mild LV dilation, normal LV size and systolic function with dysautonomia and POTS with recurrent syncopal and presyncopal episodes and associated bradycardia s/p ILR implantation. Her ILR has reached TELESCOPE REPAIRER. She presents today for ILR removal and re-implantation. Procedure Note: After reviewing informed consent and answering all questions, the patient arrived to the EP laboratory in normal sinus rhythm. The patient was prepped and draped in the usual sterile fashion. She was placed under moderate sedation by our cardiac anesthesiologist due to her history of anxiety. under local anesthesia, a 1cm incision over the left chest yielded access to the loop recorder. The loop recorder was dissected free and removed. The site was washed with saline. Then, a Medtronic LINQ II loop recorder was inserted subcutaneously in the left chest site. The device was tested and found to function normally with R wave sensing of 0.8 mV. The skin was closed with absorbable sutures and a dermal adhesive. A dressing was applied. The patient tolerated the procedure well and there were no immediate complications Summary Findings: There were no intraprocedural complications or adverse events. Procedure Profile: Fluoroscopic Time: No radiation used Estimated Patient Radiation Exposure: No radiation used Local anesthetic given: Lidocaine 1% - Epinephrine 1:100,000 injection, left chest. I/O: 400/0 (mL) Net: 400 mL Moderate sedation was provided by Anesthesia personnel and will be documented in their records. Sedative Drugs: Versed 2 mg IV Fentanyl 75 mcg IV Specimens removed: Loop Recorder Estimated blood loss: 5 cc Patient Profile: Age: 24 Gender: Female Race: Unavailable NYHA Class: I Myocardial Infarction: No LV function: ECHO: Ejection fraction 0.65 Patient: [id number] ALOK Encarnacion BELLA Lab Staff: ERI WALKER MD Lab Fellow: EDMOND NAGEL MD Referring Physician: FERNY RUEDA us Eri Walker MD SCHEDULED PROCEDURES Final Re [facility]ult [facility] [address] [place] [address] * SURGICAL PATHOLOGY (10/07/2024 2:41 PM EDT) Case Report Surgical Pathology Report Case: [id number] Authorizing Provider: Eri Walker MD Collected: 10/07/2024 02:41 PM Ordering Location: [id number] Received: 10/08/2024 08:16 AM Pathologist: Jena Harris MD Specimen: Hardware/Device/F oreign Body, Medtronic Loop recorder (left chest) 10/08/2024 5:41 PM EDT [facility] FINAL DIAGNOSIS A. Loop recorder, removal: - Implantable equipment monitor phototypesetting (gross examination only). CSM/CG 10/08/2024 10/08/2024 5:41 PM EDT [facility] at 1741 EDT Gross Description A. Hardware/Device/F oreign Body Received in formalin, labeled Medtronic loop recorder (left chest), is a silver metallic loop recording device measuring 4.5 x 0.7 x 0.4 cm. The device has the following inscription: Medtronic [id number]. No tissue is present. No sections are submitted; gross examination only. A photograph is attached to the case. The specimen is reviewed with Dr. Jena Padilla. October 08, 2024 10:06 AM Gross examination performed at [facility], [address] [place] [address] 10/08/2024 5:41 PM EDT [facility] Clinical History Pre-op diagnosis: Syncope and collapse [R55] Sinus node dysfunction (HCC) [I49.5] Bradycardia [R00.1] PVC (premature ventricular contraction) [I49.3] 10/08/2024 5:41 PM EDT [facility] Performing Lab Diagnostic interpretation performed at: [facility], [address] [place] [address], [address] [id number] Chair And Couch Maker: Xander Mendosa MD 10/08/2024 5:41 PM EDT [facility] Implant/Device/F oreign Body ELECTRONIC HARDWARE / Unknown 10/07/2024 2:41 PM EDT 10/08/2024 8:16 AM EDT Comment:Please return to EP Lab (ext [id number]) us Eri Walker MD SURGICAL PATHOLOGY Final Resu lt [facility] [address] [place] [address], * COMPREHENSIVE METABOLIC PANEL (10/07/2024 12:13 PM EDT) Protein, Total 7.5 6.3 - 8.0 g/dL 10/07/2024 12:46 PM EDT [facility] Albumin 4.8 3.9 - 4.9 g/dL 10/07/2024 12:46 PM EDT [facility] Calcium, Total 9.6 8.5 - 10.2 mg/dL 10/07/2024 12:46 PM EDT [facility] Bilirubin, Total 0.5 0.2 - 1.3 mg/dL 10/07/2024 12:46 PM T [facility] Alkaline Phosphatase 65 34 - 123 U/L 10/07/2024 12:46 PM EDT [facility] AST 17 13 - 35 U/L 10/07/2024 12:46 PM EDT [facility] ALT 11 7 - 38 U/L 10/07/2024 12:46 PM T [facility] Glucose 90 74 - 99 mg/dL 10/07/2024 12:46 PM [facility] Comment: The [place] Diabetes Association (ADA) provides guidance for cutoff values for fasting glucose and random glucose. The ADA defines fasting as no caloric intake for at least 8 hours. Fasting plasma glucose results between 100 to 125 mg/dL indicate increased risk for diabetes (prediabetes). Fasting plasma glucose results greater than or equal to 126 mg/dL meet the criteria for diagnosis of diabetes. In the absence of unequivocal hyperglycemia, results should be confirmed by repeat testing. In a patient with classic symptoms of hyperglycemia or hyperglycemic crisis, random plasma glucose results greater than or equal to 200 mg/dL meet the criteria for diagnosis of diabetes. Reference: Standards of Medical Care in Diabetes 2016, [place] [employer] Association. Diabetes Care. 2016.39(Suppl 1). BUN 14 7 - 21 mg/dL 10/07/2024 12:46 PM [facility] Creatinine 0.87 0.58 - 0.96 mg/dL 10/07/2024 12:46 PM [facility] Sodium 139 136 - 144 mmol/L 10/07/2024 12:46 PM T [facility] Potassium 3.9 3.7 - 5.1 mmol/L 10/07/2024 12:46 PM [facility] Chloride 105 98 - 107 mmol/L 10/07/2024 12:46 PM [facility] CO2 23 22 - 30 mmol/L 10/07/2024 12:46 PM [facility] Anion Gap 11 8 - 15 mmol/L 10/07/2024 12:46 PM EDT [facility] Estimated Glomerular Filtration Rate 97 >=60 mL/min/1.7 3m 10/07/2024 12:46 PM EDT [facility] Comment:Estimated Glomerular Filtration Rate (eGFR) is calculated using the 2020 CKD-EPI creatinine equation. This equation utilizes serum creatinine, sex, and age as parameters. The creatinine assay has traceable calibration to isotope dilution- mass spectrometry. Refer to KDIGO guidelines for clinical interpretation. In patients with unstable renal function, e.g. those with acute kidney injury, the eGFR may not accurately reflect actual GFR. Blood BLOOD SPECIMEN / Unknown Venipuncture / Unknown 10/07/2024 12:13 PM EDT 10/07/2024 12:21 PM EDT Eri Walker MD LABORATORY Final Result [facility] [address] [place] [address] * CARDIAC IMPLANTABLE DEVICE CHECK REMOTE (10/02/2024 11:10 PM EDT) Date Time Interrogation Session [id number] MURJ CARDIAC Type Interrogation Session Remote MURJ CARDIAC Implantable Pulse Generator Box Toe Buffer Medtronic MURJ CARDIAC Implantable Pulse Generator Type Other MURJ CARDIAC Implantable Pulse Generator Model LNQ22 MURJ CARDIAC Implantable Pulse Generator Serial Number [id number] MURJ CARDIAC Implantable Pulse Generator Implant Date [id number] MURJ CARDIAC 10/02/2024 11:1 0 PM EDT Narrative MURJ CARDIAC - 10/20/2024 6:22 PM EDT Normal Remote: No Events >Summary 02-Sep-2024 to 03-Oct-2024 * This is a normal remote diagnostic device check * Alerts or events: No events * Battery data was reviewed * Battery status: good * Presenting rhythm reviewed- SB 55 bpm. * Heart Rate Histograms reviewed * PVCs (% beats) 6.5% NOTE TO PROVIDERS: Cardiac Implanted Devices Flowsheets contain detailed Programming and Evaluation data. Full Docket/PDF found below under Scanned Documents. Procedure Note Eri Walker MD - 10/20/2024 Normal Remote: No Events >Summary 02-Sep-2024 to 03-Oct-2024 * This is a normal remote diagnostic device check * Alerts or events: No events * Battery data was reviewed * Battery status: good * Presenting rhythm reviewed- SB 55 bpm. * Heart Rate Histograms reviewed * PVCs (% beats) 6.5% NOTE TO PROVIDERS: Cardiac Implanted Devices Flowsheets contain detailedProgramming and Evaluation data. Full Docket/PDF found below underScanned Documents. Eri Walker MD CARDIOLOGY Final Result MURJ CARDIAC from Last 3 Months Insurance [facility] [employer] PPO Care Teams Public Address System Operator Relationship Specialty Start Date End Date Luis Felipe Briseno APRN [address] [facility] [address] [place] [address] PCP - General Family Medicine 08/23/24
--- OUTSIDE RECORDS SUMMARY | 2024-12-13 20:23 | XMS_ITS | Encounter Summary ---
Author Organization [facility] Address [address] [place] [address] Care Team Providers Care Collar Cutter Name Role Phone Luis Felipe Briseno SPIKE Primary Care Provider [phone] Source Comments In the event this information is protected by the Federal Confidentiality of Alcohol and Drug AbusePatient Records regulations: The Federal rules restrict any use of the information to criminally investigate or prosecute any alcohol or drug abuse patient.[facility] Encounter Details Date Type Department Care Team (Late st Contact Info) Description 11/02/2024 Orders Only Pseudo CARD EPS MAIN Pseudo Department Only [facility] Kamala Walker MD [address] [place] [address] Social History Tobacco Use Types Packs/Day Years Used Date Smoking Tobacco: Never Smokeless Tobacco: Never Comments:Father and pt uncle use smokeless tobacco. PHQ-2 Answer Date Recorded PHQ-2 score 2 10/17/2023 Area Deprivation Index Answer Date Jewel rded National Score (1-100), lower number is lower ri sk 9 10/05/2024 State Score (1-10), lower number is lower risk 1 10/05/2024 Data from: https://www.neighborhoodatlas.[facility]/. Last address used for calculation [address] 10/05/2024 Comments No Sex and Gender [...] Comments CARDIAC IMPLANTABLE DEVICE CHECK REMOTE Routine 11/02/2024 11:18 PM EDT documented in this encounter Results * CARDIAC IMPLANTABLE DEVICE CHECK REMOTE (11/02/2024 11:18 PM EDT) Date Time Interrogation Session [id number] MURJ CARDIAC Type Interrogation Session Remote MURJ CARDIAC Implantable Pulse Generator Reconciliation Coordinator [employer] MURJ CARDIAC Implantable Pulse Generator Type Other MURJ CARDIAC Implantable Pulse Generator Model [id number] MURJ CARDIAC Implantable Pulse Generator Serial Number [id number] [facility] CARDIAC Implantable Pulse Generator Implant Date [id number] [facility] CARDIAC 11/02/2024 11:1 8 PM EDT Narrative [facility] CARDIAC - 11/16/2024 10:58 AM EDT Normal [...] Documents. Procedure Note Kamala Walker MD - 11/16/2024 Normal Remote: No [...] Full Docket/PDF found below underScanned Documents. us Kamala Walker MD CARDIOLOGY Final Result MURAnalilia CARDIAC documented in this encounter Visit Diagnoses Not on filedocumented in this encounter Care Teams Collar Cutter Relationship Specialty Start Date End Date Luis Felipe Briseno APRN [address] [facility] [address] [place] [address] PCP - General Family Medicine 08/23/24 documented as of this encounter
--- OUTSIDE RECORDS SUMMARY | 2024-12-13 20:23 | XMS_ITS | Encounter Summary ---
Author Organization [facility] Address [address] [place] [address] Care Team Providers Care Alemite Operator Name Role Phone Adrienne Cardona MD Primary Care Provider [phone] Luis Felipe Briseno APRN Primary Care Provider + [phone] Source Comments In the event this information is protected by the Federal Confidentiality of Alcohol and Drug AbusePatient Records regulations: The Federal rules restrict any use of the information to criminally investigate or prosecute any alcohol or drug abuse patient.[facility] Encounter Details Date Type Department Care Team (Late st Contact Info) Description 07/03/2020 Patient Msg Pediatric [place] [address] [place] [address] Provider, Ccf Appointment Social History Tobacco Use Types Packs/Day Years Used Date Smoking Tobacco: Never Smokeless Tobacco: Never Comments:Father and pt uncle use smokeless tobacco. Area Deprivation Index Answer Date Jewel rded National Score (1-100), lower number is lower ri sk Not on file 02/17/2020 State Score (1-10), lower number is lower risk N ot on file 02/17/2020 Data from: https://www.neighborhoodatlas.medicine.[facility].edu/. Last address used for calculation Not on file 02/17/2020 Comments No Sex and Gender Information Value Date Recorded Sex Assigned at Not on file Legal Sex Female 11:54 AM EDT Gender Identity Not on file Sexual Orientation Not on file COVID-19 Exposure Response Date Recorded In the last month, have you been in contact with someone who was confirmed or suspected to have Coronavirus / COVID-19? Unable to assess 07/03/2020 4:00 PM EDT documented as of this encounter Plan of Treatment Not on file documented as of this encounter Visit Diagnoses Not on filedocumented in this encounter Care Teams Alemite Operator Relationship Specialty Start Date End Date Adrienne Cardona MD [address] [facility] [address] [place] [address] PCP - General Pediatrics 08/19/18 08/22/24 Luis Felipe Briseno APRN [address] [phone] PCP - General Family Medicine 08/23/24 documented as of this encounter
--- OUTSIDE RECORDS SUMMARY | 2024-12-13 20:23 | XMS_ITS | Encounter Summary ---
Author Organization [facility] Address [facility] [place] [address] Care Team Providers Care Grey Goods Marker Name Role Phone Adrienne Cardona MD Primary Care Provider [phone] Luis Felipe Briseno APRN Primary Care Provider + [phone] Source Comments In the event this information is protected by the Federal Confidentiality of Alcohol and Drug AbusePatient Records regulations: The Federal rules restrict any use of the information to criminally investigate or prosecute any alcohol or drug abuse patient.[facility] Encounter Details Date Type Department Care Team (Late st Contact Info) Description 03/04/2022 [place] [address] Provider, Ccf MRI Screening Questionnaire Completion Required [...] N ot on file 02/17/2020 Data from: https://www.neighborhoodatlas.medicine.[facility].edu/. Last address used for calculation Not on [...] on filedocumented in this encounter Care Teams Grey Goods Marker Relationship Specialty Start Date End Date Adrienne Cardona MD [address] [facility] [address] [place] [address] PCP - General Pediatrics 08/19/18 08/22/24 Luis Felipe Briseno APRN [address] [phone] PCP - General Family Medicine 08/23/24 documented as of this encounter
--- OUTSIDE RECORDS SUMMARY | 2024-12-13 20:23 | XMS_ITS | Encounter Summary ---
Author Organization [facility] Address [address] [place] [address] Care Team Providers Care Soybean Specialties Cook Name Role Phone Adrienne Cardona MD Primary Care Provider [phone] Encounter Details Date Type Department Care Team (Late st Contact Info) Description 03/25/2008 Office Visit [facility] [address] [place] [address] [id number] Estelle Low MD [address] [place] [address] Social History Tobacco Use Types Packs/Day Years [...] documented as of this encounter Care Teams Soybean Specialties Cook Relationship Specialty Start Date End Date Adrienne Cardona MD [address] [address] PCP - General 04/25/07 documented as of this encounter
--- OUTSIDE RECORDS SUMMARY | 2024-12-13 20:23 | XMS_ITS | Encounter Summary ---
Author Organization [facility] Address [address] [place] [address] Care Team Providers Care Insurance Processing Clerk Name Role Phone Adrienne Cardona MD Primary Care Provider [phone] Luis Felipe Briseno APRN Primary Care Provider + [phone] Source Comments In the event this information is protected by the Federal Confidentiality of Alcohol and Drug AbusePatient Records regulations: The Federal rules restrict any use of the information to criminally investigate or prosecute any alcohol or drug abuse patient.[facility] Encounter Details Date Type Department Care Team (Late st Contact Info) Description 07/22/2022 Patient Msg Neurology [address] [place] [address] Eva Carpio APRN.CERTIFIED PHARMACY TECHNICIAN [address] [place], [place] [phone] labs Social History Tobacco Use Types Packs/Day Years Used Date Smoking Tobacco: Never Smokeless Tobacco: Never Comments:Father and pt uncle use smokeless tobacco. Area Deprivation Index Answer Date Jewel rded National Score (1-100), lower number is lower ri sk Not on file 02/17/2020 State Score (1-10), lower number is lower risk N ot on file 02/17/2020 Data from: https://www.neighborhoodatlas.medicine.[facility].edu/. Last address used for calculation Not on [...] on filedocumented in this encounter Care Teams Insurance Processing Clerk Relationship Specialty Start Date End Date Adrienne Cardona MD [address] [facility] [address] [place] [address] PCP - General Pediatrics 08/19/18 08/22/24 Luis Felipe Briseno APRN [address] [facility] [address] [place] [address] PCP - General Family Medicine 08/23/24 documented as of this encounter
--- OUTSIDE RECORDS SUMMARY | 2024-12-13 20:23 | XMS_ITS | Encounter Summary ---
Author Organization [facility] Address [address] [place] [address] Care Team Providers Care Grain Elevator Superintendent Name Role Phone Adrienne Cardona MD Primary Care Provider [phone] Encounter Details Date Type Department Care Team (Late st Contact Info) Description 03/29/2008 [facility] [address] [place] [address] Adrienne Cardona MD [address] [facility] [address] [place] [address] Social History Tobacco Use Types Packs/Day Years [...] IMMUNOLOGY/SEROLOGY ORDERABLES Final Result Performing Organization Address [facility] [place]/ZIP Co de Phone Number [facility] [address] [place] [address], * MONO SCREEN WITH EBV IF NEGATIVE (03/29/2008 11:00 AM EST) Pathologist [facility] MONO SCREEN WITH EBV IF NEGATIVE Negative NEG [facility] 03/29/2008 11:0 0 AM EST 03/29/2008 2:58 PM EST us Adrienne Cardona MD IMMUNOLOGY/SEROLOGY ORDERABLES Final Result Performing Organization Address [facility] [place]/[facility] de Phone Number [facility] [address] [place] [address], * (ABNORMAL) CBC W/AUTOMATED DIFF, REFLEX TO MANUAL (03/29/2008 11:00 AM EST) Pathologist [facility] WBC 5.5 5.5 - 15.5 K/cu mm [facility] RBC 4.54 3.9 - 5.3 M/cu [...] ORDERABLES Final Re sult Performing Organization Address [facility] [place]/ZIP Co de Phone Number [facility] [address] [place] [address], [place] [phone] * CULTURE, BLOOD-BONE MARROW (03/29/2008 11:00 AM EST) SPECIMEN DESCRIPTION Blood [facility] SPECIAL REQUEST None [facility] CULTURE RESULT No growth 5 days [facility] REPORT STATUS Final [id number] [facility] 03/29/2008 11:0 0 AM EST 03/29/2008 2:54 PM EST us Adrienne Cardona MD MICRO/VIROLOGY ORDERABLES Livia l Result Performing Organization Address [facility] [place]/[facility] de Phone Number [facility] [address] [place] [address], [place] [phone] documented in this encounter Visit Diagnoses Not on filedocumented in this encounter Additional Health Concerns Infection Onset Date Last Indicated Resolved Time COVID-19 RESULTS PENDING 12/24/2019 12/24/2019 12:47 AM EDT documented as of this encounter Care Teams Grain Elevator Superintendent Relationship Specialty Start Date End Date Adrienne Cardona MD [address] [facility] [address] [place] [address] PCP - General 04/25/07 documented as of this encounter
--- OUTSIDE RECORDS SUMMARY | 2024-12-13 20:24 | XMS_ITS | Encounter Summary ---
Author Organization [facility] Address [address] [facility] [place] [address] Care Team Providers Care Behavior Therapist Name Role Phone Adrienne Cardona MD Primary Care Provider [phone] Encounter Details Date Type Department Care Team (Late st Contact Info) Description 06/08/2012 Orders Only Cardiology Clinic Main [place] [address] [facility] [facility] 2nd [place] [phone] Historical, Provider Social History Tobacco Use Types [...] documented as of this encounter Care Teams Behavior Therapist Relationship Specialty Start Date End Date Adrienne Cardona MD [address] [facility] [address] [place] [address] PCP - General 04/25/07 documented as of this encounter
--- OUTSIDE RECORDS SUMMARY | 2024-12-13 20:24 | XMS_ITS | Clinical Summary ---
Author Organization [facility] Address [address] [address] Care Team Providers Care Laborer Concrete Paving Name Role Phone Adrienne Cardona MD Primary Care Provider [phone] Allergies Active Allergy Reactions Criticality Noted Date [...] tablet 12 9 Active blood sugar diagnostic [facility] stripIndication s:Hypoglycemia Use as directed to check blood glucose when having signs of low blood glucose. 50 Strip 3 05/12/2019 3:29 PM EST 0 Active blood glucose meter Mis kitIndications: Hypoglycemia Use to check blood glucose as directed when having signs of low blood glucose. 1 Kit 05/12/2019 3:29 PM EST 0 Active lancets 30 gauge [facility] MiscIndications :Hypoglycemia Use with lancing device as directed to check blood sugar 100 Each 3 05/12/2019 3:29 PM EST 0 Active Active Problems Problem Noted Date Diagnosed Date Mild protein-calorie malnutrition 05/11/2019 POTS (postural orthostatic tachycardia syndrome) 05/10/2019 Excessive daytime sleepiness 07/30/2018 Syncope, vasovagal 07/07/2016 Overview (07/15/2016): Oct [employer] mission trip; Jul 07-July 08 admitted to [facility] S/P atrioventricular septal defect repair 005 05/27/2013 [...] 05/12/2019 Immunizations Immunization Administration Dates Next Due Influenza - Injectable - Trivalent - Preservativ e Free 12/08/2015,12/02/2014 Influenza, injectable, quadrivalent, preservativ e free 05/12/2019 Influenza, seasonal, injectable 01/09/2012 Family History Medical History Relation Comments Early [...] 3-dose series) 2021 COVID-19 Vaccine (1 - 2023- season) 2024 Influenza Vaccine (#1) 2024 0, 12/08/2015, 12/02/2014, Additional history exists HIB [...] age to complete this topic Insurance [facility] Care Teams Laborer Concrete Paving Relationship Specialty Start Date End Date Adrienne Cardona MD [address] [facility] [address] [place] [phone] PCP - General 04/25/07
--- OUTSIDE RECORDS SUMMARY | 2024-12-13 20:24 | XMS_ITS | Continuity of Care Document ---
Author Organization [facility] Address [address] [place] [address] Phone [phone] Care Team Providers Care Verifying Specialist Name Role Phone Adrienne Cardona M.D. Care Team Information Recei kylie Unavailable None Care Team Information Chemical Engineering Technologist U navailable Payers Date Identification Numbers Payment Provider S ubscriber Policy Number: [id number] Khanh BEST/BS Martín [employer] Number: [id number] [id number] PayID: [id number] [place] [address] Allergies and adverse reactions Description No Known Drug Allergies Assessments Date Code Description Provider 01/01/2010 841.9 Sprains & Strains Elbow & Fo rearm Unspec Terrance Meng M.D.
--- OUTSIDE RECORDS SUMMARY | 2024-12-13 20:24 | XMS_ITS | Encounter Summary ---
Author Organization [facility] Address [address] [place] [address] Care Team Providers Care Tools Developer Name Role Phone Adrienne Cardona MD Primary Care Provider [phone] Reason for Referral * Consultation (Routine) - Closed Specialty Diagnoses / Procedures Referred By Contact Referred To Contact Cardiothoracic Surgery Diagnoses Atrioventricular canal (AVC), transitional Bradycardia Adrienne Cardona MD [address] [facility] [employer] [address] Phone: tel: fax: Referral ID Status Reason Start Date Expiration Date V isits Requested Visits Authorized [id number] Closed Specialty Services Required 03/25/2013 03/25/2014 7 7 Encounter Details Date Type Department Care Team (Latest Contact Info) Description 03/25/2013 Community Orders [facility] Adrienne Cardona MD [address] [employer] [address] [address] Social History Tobacco Use Types Packs/Day Years [...] documented as of this encounter Care Teams Tools Developer Relationship Specialty Start Date End Date Adrienne Cardona MD [address] [place] [address] PCP - General 04/25/07 documented as of this encounter
--- OUTSIDE RECORDS SUMMARY | 2024-12-13 20:24 | XMS_ITS | Encounter Summary ---
Author Organization [facility] Address [address] [facility] [place] [address] Care Team Providers Care Montessori Preschool Teacher Name Role Phone Adrienne Cardona MD Primary Care Provider [phone] Encounter Details Date Type Department Care Team (Late st Contact Info) Description 07/11/2011 Orders Only Cardiology Clinic Main [place] [address] [facility] [facility] 2nd [place] [phone] Historical, Provider Social History Tobacco Use Types [...] documented as of this encounter Care Teams Montessori Preschool Teacher Relationship Specialty Start Date End Date Adrienne Cardona MD [address] [facility] [address] [place] [address] PCP - General 04/25/07 documented as of this encounter
[2024-12-13 20:29] VITALS: BP 102/54; PULSE 59; RESP 16; TEMP 36.7; O2SAT 98; BMI 19.6
--- NOTE | 2024-12-13 20:48 | CRLHL7_ITS ---
For Patients: As a result of the Century Cures Act, medical imaging exams and procedure reports are released immediately into your electronic medical record. You may view this report before your referring provider. If you have questions, please contact your health care provider. Indication: Seizure, syncope Technique: Noncontrast CT through the head with multiplanar reformats Comparison: None Findings: Brain: Mild motion degradation and streak artifact. Question edema in the right temporal lobe, may be artifactual. No acute hemorrhage. No significant mass effect or midline shift. Ventricles: No acute abnormality appreciated. Orbits, sinuses, mastoids: No acute abnormality appreciated. Calvarium and soft tissues: No acute abnormality appreciated. Impression: Mild motion and streak artifact degradation with questionable edema in the right temporal lobe, though this may be artifactual. Contrast-enhanced MRI would be recommended if there is continued clinical concern for significant intracranial pathology. If there is concern for encephalitis, such as herpes encephalitis, as an etiology for patient`s symptoms, lumbar puncture would be recommended. Please note that all CT scans at this facility use dose modulation, iterative reconstruction, and/or weight-based dosing when appropriate to reduce radiation dose to as low as reasonably achievable. Dictated by Que Bond MD @ 12/13/2024 9:24:30 PM (Electronically Signed)
--- OUTSIDE RECORDS SUMMARY | 2024-12-13 21:01 | XMS_ITS | Clinical Summary ---
Author Organization [facility] Address [address] [place] [address] Care Team Providers Care Cor[employer] Cadet Name Role Phone Luis Felipe Briseno CNP Primary Care Provider [phone] Allergies Active Allergy Reactions Criticality Noted Date Comments Tea Tree Oil Hives,Rash Low 07/07/2016 Medications lithium (LITHOBID) 300 MG CR tablet Take 3 (three) tablets (900 mg total) by mouth at bedtime TAKE 1 TABLET BY MOUTH EVERYDAY AT BEDTIME . 08/05/19 24 Active lurasidone (LATUDA) 40 mg Tab TAKE 1 TABLET BY MOUTH EVERY NIGHT AT BEDTIME WITH A 350 CALORIE SNACK FOR ABSORPTION 08/06/19 24 Active magic mouthwash susp equal parts viscous lidocaine 2%, diphenhydramine 12.5mg/5mL, maalox [id number]/5m L Swish and swallow every 6 hours as needed for pain . 300 mL 08/20/19 24 Active lamoTRIgine (LAMICTAL) 200 MG tablet Take 1 (one) tablet (200 mg total) by mouth daily . Active dicyclomine (BENTYL) 20 mg tablet Take 1 (one) tablet (20 mg total) by mouth 4 (four) times a day as needed (Abd pain) . 15 tablet 10/20/19 25 Active Encounters Date Type Department Care Team Description 10/19/2024 7:45 AM EDT - 10/19/2024 12:20 PM EDT Emergency [facility] [address] [place] [address] Floyd Santiago, Discharge Disposition: Home 10/19/2024 Travel from Last 3 Months Social History Tobacco [...] Sign Reading Time Taken Comments Blood Pressure 108/58 10/19/2024 10:30 AM EDT Pulse 55 10/19/2024 10:30 AM EDT Temperature 36.6 C (97.8 F) 10/19/2024 7:47 AM EDT Respiratory Rate 18 10/19/2024 9:30 AM EDT Oxygen Saturation 99% 10/19/2024 10:30 AM EDT Inhaled Oxygen Concentration - - Weight 52.2 kg (115 lb) 08/20/2023 1:49 PM EDT Height 162.6 cm (5' 4) 08/20/2023 1:49 PM EDT Body Mass Index 19.74 08/20/2023 1:49 PM EDT Plan of Treatment Health Maintenance Due Date Last Done Comments Depression Screening/Follow-Up (PHQ-2/9) 2014 HIV Screening 2017 HPV Vaccines (1 - 3-dose series) 2017 Hepatitis C Screening 2020 Chlamydia Screening 10/08/2024 10/09/2023 Wellness Visit 10/08/2024 10/09/2023, 08/0 03/2023, 07/04/2022, Additional history exists COVID-19 Vaccine ( season) 2024 03/08/2022, 03/06/2021, 05/23/2020, Additional history exists Influenza Vaccine (#1) 2024 , 12/08/2015, 12/02/2014, Additional history exists Pap Smear 10/08/2026 10/09/2023 Tetanus: Every 10yrs 07/04/2032 07/04/2022, 08/23/19 15 Pneumococcal Vaccine: Ped or At-Risk Aged Out 09/22/2008, 06/18/2004 No longer eligibl e based on patient's age to complete this topic Procedures Procedure Name Priority Date/Time Associated Diagnosis Comments EKG 10/19/2024 5:[address] ABDOMEN PELVIS WITH IV CONTRAST ONLY [place] 10/19/2024 9:27 AM EDT ECG 12-LEAD STAT 10/19/2024 9:04 AM EDT CBC WITH AUTO DIFFERENTIAL STAT 10/19/2024 8:11 AM EDT HCG URINE, QUALITATIVE STAT 10/19/2024 8:11 AM EDT URINALYSIS STAT 10/19/2024 8:11 AM EDT LIPASE STAT 10/19/2024 8:11 AM EDT HEPATIC FUNCTION PANEL STAT 10/19/2024 8:11 AM EDT LACTIC ACID, PLASMA STAT 10/19/2024 8 :11 AM EDT CBC AND DIFFERENTIAL STAT 10/19/2024 8:11 AM EDT BASIC METABOLIC PANEL STAT 10/19/2024 8:11 AM EDT from Last 3 Months Results * EKG (10/19/2024 5:55 PM EDT) Floyd Santiago DO SCANNED ORDERS Final Result * CT Abdomen Pelvis With IV Contrast Only (10/19/2024 9:27 AM EDT) Anatomical Region Laterality Modality Abdomen, Pelvis Computed Tomogra phy 10/19/2024 9:34 AM EDT Impressions 10/19/2024 10:26 PM EDT Moderate stool in the rectosigmoid colon. Remaining colon demonstrates moderate amount of liquid stool with mild wall thickening suggestive of diarrheal state with possible colitis. No evidence of bowel obstruction, pneumatosis or free air. No appendicitis. No obstructive uropathy. [employer] Workstation ID: [id number] Narrative 10/19/2024 10:26 PM EDT EXAMINATION: CT ABDOMEN PELVIS WITH IV CONTRAST ONLY HISTORY: ORDERING SYSTEM PROVIDED HISTORY: Abd pain, vomiting, TECHNOLOGIST PROVIDED HISTORY: Illness/Other Reason for exam: Abdominal pain Encounter Type: Initial Additional signs and symptoms: Nausea, vomiting, constipation ORDERING SYSTEM PROVIDED DIAGNOSIS CODES: COMPARISON: None. TECHNIQUE: CT examination of the abdomen and pelvis following the administration of intravenous contrast. Coronal and sagittal reformations were performed. Dose reduction techniques were achieved by using automated exposure control and/or adjustment of mA and/or kV according to patient size and/or use of iterative reconstruction technique. CONTRAST: IOPAMIDOL 370 MG IODINE/ML (76 %) INTRAVENOUS SOLUTION - 75 mL, FINDINGS: LOWER CHEST: Left lower chest loop recorder device noted. Lung bases are clear. ABDOMEN: Liver: Normal. Bile ducts: Normal caliber. Gallbladder: No calcified gallstones. Normal caliber wall. Pancreas: Normal. Spleen: Normal. Adrenals: Normal. Kidneys: Symmetric enhancement without hydronephrosis. PELVIS: Reproductive organs: No pelvic masses. Ureters: Normal. Bladder: Normal. OTHER ABDOMEN AND PELVIS: Bowel: Moderate stool burden noted at the rectosigmoid colon. Moderate liquid stool seen throughout the remaining colon with mild wall thickening. No bowel obstruction. No appendicitis. Peritoneum: No free intraperitoneal air. Small amount of free fluid in the pelvis. Vessels: Normal. Lymph nodes: No enlarged lymph nodes. Abdominal wall: Normal. Osseous structures: No destructive lesions. Procedure Note Ovi Neff, - 10/19/2024 EXAMINATION: CT ABDOMEN PELVIS WITH IV CONTRAST ONLY HISTORY: ORDERING SYSTEM PROVIDED HISTORY: Abd pain, vomiting, TECHNOLOGIST PROVIDED HISTORY: Illness/Other Reason for exam: Abdominal pain Encounter Type: Initial Additional signs and symptoms: Nausea, vomiting, constipation ORDERING SYSTEM PROVIDED DIAGNOSIS CODES: COMPARISON: None. TECHNIQUE: CT examination of the abdomen and pelvis following the administration ofintravenous contrast. Coronal and sagittal reformations were performed. Dose reduction techniques were achieved by using automated exposurecontrol and/or adjustment of mA and/or kV according to patient size and/oruse of iterative reconstruction technique. CONTRAST: IOPAMIDOL 370 MG IODINE/ML (76 %) INTRAVENOUS SOLUTION - 75 mL, FINDINGS: LOWER CHEST: Left lower chest loop recorder device noted. Lung bases areclear. ABDOMEN: Liver: Normal. Bile ducts: Normal caliber. Gallbladder: No calcified gallstones. Normal caliber wall. Pancreas: Normal. Spleen: Normal. Adrenals: Normal. Kidneys: Symmetric enhancement without hydronephrosis. PELVIS: Reproductive organs: No pelvic masses. Ureters: Normal. Bladder: Normal. OTHER ABDOMEN AND PELVIS: Bowel: Moderate stool burden noted at the rectosigmoid colon. Moderateliquid stool seen throughout the remaining colon with mild wallthickening. No bowel obstruction. No appendicitis. Peritoneum: No free intraperitoneal air. Small amount of free fluid inthe pelvis. Vessels: Normal. Lymph nodes: No enlarged lymph nodes. Abdominal wall: Normal. Osseous structures: No destructive lesions. IMPRESSION: Moderate stool in the rectosigmoid colon. Remaining colon demonstratesmoderate amount of liquid stool with mild wall thickening suggestive ofdiarrheal state with possible colitis. No evidence of bowel obstruction,pneumatosis or free air. No appendicitis. No obstructive uropathy. ST/[employer]de Workstation ID: [id number] Floyd Santiago DO IMG CT ORDERABLES Fin al Result * ECG 12-LEAD (10/19/2024 9:04 AM EDT) Ventricular Rate 47 BPM MUSE Atrial Rate 47 BPM MUSE P-R Interval 174 ms MUSE QRS Duration 138 ms MUSE Q-T Interval 530 ms MUSE QTC Calculation (Bezet) 469 ms MUSE P [place] 46 degrees MUSE R [place] -28 degrees MUSE T [place] -21 degrees MUSE 10/19/2024 9:04 AM EDT 10/22/2024 2:17 PM EDT Narrative MUSE - 10/22/2024 2:17 PM EDT Sinus bradycardia Right bundle branch block Minimal voltage criteria for LVH, may be normal variant ( R in aVL ) Septal infarct , age undetermined T wave abnormality, consider lateral ischemia Abnormal ECG ECG Cart Interpretation see physician note for interpretation. Confirmed by Ami Roy ([id number]) on 10/22/2024 2:17:13 PM Floyd Santiago DO ECG ORDERABLES Edite d Result - Final MUSE * (ABNORMAL) CBC Auto Differential (10/19/2024 8:11 AM EDT) WBC 3.88(L) 4.50 - 11.00 K/mcL 10/19/2024 8:17 AM EDT LAB RBC 4.85 4.00 - 5.20 M/mcL 10/19/2024 8:17 AM EDT LAB Hemoglobin 13.9 12.0 - 16.0 g/dL 10/19/2024 8:17 AM EDT LAB Hematocrit 43.7 36.0 - 46.0 % 10/19/2024 8:17 AM EDT LAB MCV 90.1 80.0 - 100.0 fL 10/19/2024 8:17 AM EDT LAB MCH 28.7 26.0 - 34.0 pg 10/19/2024 8:17 AM EDT LAB MCHC 31.8 31.0 - 37.0 g/dL 10/19/2024 8:17 AM EDT LAB Platelets 221 150 - 400 K/mcL 10/19/2024 8:17 AM EDT LAB RDW - CV 12.2 11.6 - 14.8 % 10/19/2024 8:17 AM EDT LAB MPV 8.8(L) 9.4 - 12.4 fL 10/19/2024 8:17 AM EDT LAB Neutrophils 64.4 % 10/19/2024 8:17 AM EDT LAB Lymphocytes 15.2 % 10/19/2024 8:17 AM EDT LAB Monocytes 12.1 % 10/19/2024 8:17 AM EDT LAB Eosinophils 7.2 % 10/19/2024 8:17 AM EDT LAB Basophils 0.8 % 10/19/2024 8:17 AM EDT LAB IG Percent 0.30 % 10/19/2024 8:17 AM EDT LAB Comment:The IG parameter is the percentage of metamyelocytes, myelocytes and promyelocytes. An immature granulocyte count (IG) of 1% or more suggests the possibility of infection, an IG count of 3% is very likely related to an infection. Neutrophils Abs 2.50 1.70 - 7.00 K/mcL 10/19/2024 8:17 AM EDT LAB Lymphocytes Abs 0.59(L) 0.90 - 4.00 K/mcL 10/19/2024 8:17 AM EDT LAB Monocytes Abs 0.47 0.30 - 0.90 K/mcL 10/19/2024 8:17 AM EDT LAB Eosinophils Abs 0.28 0.00 - 0.50 K/mcL 10/19/2024 8:17 AM EDT LAB Basophils Abs 0.03 0.00 - 0.30 K/mcL 10/19/2024 8:17 AM EDT LAB IG Absolute 0.01 0.00 - 0.30 K/mcL 10/19/2024 8:17 AM EDT LAB Nucleated RBC 0.0 % 10/19/2024 8:17 AM EDT LAB Nucleated RBC Abs 0.00 0.00 - 0.00 K/mcL 10/19/2024 8:17 AM EDT LAB Blood BLOOD SPECIMEN / Unknown Venipuncture / Unknown 10/19/2024 8:11 AM EDT 10/19/2024 8:14 AM EDT Result [facility] Floyd Santiago DO LAB BLOOD ORDERABLES Final Result Performing Organization Address City/State/[facility] [[email or web address]] Co de Phone Number LAB [address] [place] [address] * Urine (10/19/2024 8:11 AM EDT) Beta-hCG, Ur, Qual Negative Negative 10/19/2024 9:08 AM EDT LAB Urine URINE SPECIMEN / Unknown Collection / Unknown 10/19/2024 8:11 AM EDT 10/19/2024 8:50 AM EDT Narrative LAB - 10/19/2024 9:08 AM EDT Negative: Dilute urine specimens, as indicated by a low specific gravity (<1.010) may not contain representitive levels of hCG. If is still suspected, a serum test or repeat urine test using a first morning urine specimen should be considered. Floyd Griffin Canastota DO URINE ORDERABLES Livia l Result LAB [address] [place] [address] * (ABNORMAL) Urinalysis (10/19/2024 8:11 AM EDT) Color, Urine Yellow Colorless, Yellow 10/19/2024 9:03 AM EDT LAB Clarity, Urine Clear Clear 10/19/2024 9:03 AM EDT LAB Specific [place] 1.020 1.005 - 1.025 10/19/2024 9:03 AM EDT LAB pH, Urine 6.5 5.0 - 7.0 10/19/2024 9:03 AM EDT LAB Protein, Urine Negative Negative mg/dL 10/19/2024 9:03 AM EDT LAB Glucose, Urine Negative Negative mg/dL 10/19/2024 9:03 AM EDT LAB Ketones, Urine Negative Negative mg/dL 10/19/2024 9:03 AM EDT LAB Bilirubin, Urine Negative Negative 10/20/19 25 9:03 AM EDT LAB Urobilinogen, Urine <2.0 <2.0 mg/dL 10/19/2024 9:03 AM EDT LAB Blood, Urine Negative Negative 10/19/2024 9:03 AM EDT LAB Nitrite, Urine Negative Negative 10/19/2024 9:03 AM EDT LAB Leukocyte Esterase, Urine Negative Negative 10/19/2024 9:03 AM EDT LAB WBCs, Urine 3 0 - 5 /hpf 10/19/2024 9:03 AM EDT LAB RBCs, Urine 1 0 - 3 /hpf 10/19/2024 9:03 AM EDT LAB Bacteria, Urine Rare(A) None Seen /hpf 10/19/2024 9:03 AM EDT LAB Squamous Epithelial 9(H) 0 - 4 /hpf 10/19/2024 9:03 AM EDT LAB Transitional Epithelial <1 0 - 1 /hpf 10/19/2024 9:03 AM T LAB Mucus, Urine Rare None Seen, Rare /lpf 10/19/2024 9:03 AM EDT LAB Urine URINE SPECIMEN / Unknown Collection / Unknown 10/19/2024 8:11 AM EDT 10/19/2024 8:50 AM EDT Narrative LAB - 10/19/2024 9:03 AM EDT Microscopic examination is performed on all urinalysis samples and only positive findings are reported. The test for blood on the chemical analytic portion of urinalysis may also be positive due to hemoglobinuria and myoglobinuria and if red blood cells are present they are quantified by microscopic examination. Floyd Santiago DO URINE ORDERABLES Livia l Result Performing Organization Address City/[facility] [[email or web address]] Co de Phone Number LAB [address] [place] [address] * Lipase (10/19/2024 8:11 AM EDT) Pathologist [facility] Lipase 25 15 - 65 U/L 10/19/2024 8: 38 AM EDT LAB Blood BLOOD SPECIMEN / Unknown Venipuncture / Unknown 10/19/2024 8:11 AM EDT 10/19/2024 8:14 AM EDT Floyd Santiago DO LAB BLOOD ORDERABLES Final Result Performing Organization Address [facility] de Phone Number LAB [address] [place] [address] * Lactic Acid (10/19/2024 8:11 AM EDT) Pathologist [facility] Lactic Acid 1.6 0.6 - 2.0 mmol/L 10/19/2024 8:38 AM EDT LAB Blood BLOOD SPECIMEN / Unknown Venipuncture / Unknown 10/19/2024 8:11 AM EDT 10/19/2024 8:14 AM EDT Floyd Santiago DO LAB BLOOD ORDERABLES Final Result Performing Organization Address [facility] de Phone Number LAB [address] [place] [address] * Liver Function Tests (LFTs) (10/19/2024 8:11 AM EDT) Pathologist [facility] Total Protein 6.7 6.0 - 8.0 g/dL 10/19/2024 12:28 PM EDT LAB Albumin 4.6 3.2 - 5.2 g/dL 10/19/2024 12:28 PM EDT LAB Total Bilirubin 0.5 0.0 - 1.3 mg/dL 10/19/2024 12:28 PM EDT LAB Bilirubin, Direct <0.2 0.0 - 0.4 mg/dL 10/19/2024 12:28 PM EDT LAB Alkaline Phosphatase 62 40 - 140 U/L 10/19/2024 12:28 PM EDT LAB AST 21 0-35 U/L U/L 10/19/2024 12:28 PM EDT LAB ALT 16 0-35 U/L U/L 10/19/2024 12:28 PM EDT LAB Blood BLOOD SPECIMEN / Unknown Venipuncture / Unknown 10/19/2024 8:11 AM EDT 10/19/2024 8:14 AM EDT Floyd Santiago DO LAB BLOOD ORDERABLES Final Result LAB [address] [place] [address] * (ABNORMAL) BMP (10/19/2024 8:11 AM EDT) Sodium 138 135 - 145 mmol/L 10/19/2024 8:38 AM EDT LAB Potassium 3.4(L) 3.5 - 5.1 mmol/L 10/19/2024 8:38 AM EDT LAB Chloride 105 98 - 108 mmol/L 10/19/2024 8:38 AM EDT LAB Bicarbonate 23 21 - 32 mmol/L 10/19/2024 8:38 AM EDT LAB Anion Gap 13 10 - 20 mmol/L 10/19/2024 8:38 AM EDT LAB Glucose 105(H) 65 - 99 mg/dL 10/19/2024 8:38 AM EDT LAB BUN 6(L) 8 - 25 mg/dL 10/19/2024 8:38 AM EDT LAB Creatinine 0.91 0.40 - 1.10 mg/dL 10/19/2024 8:38 AM EDT LAB eGFR 92 >=60 mL/min/1.7 3 m2 10/19/2024 8:38 AM EDT LAB Comment:Estimated GFR was ca lculated using the 2020 CKD-EPI creatinine equation. BUN/Creatinine Ratio 6.6(L) 10.0 - 20.0 10/19/2024 8:38 AM EDT LAB Calcium 9.3 8.4 - 10.2 mg/dL 10/19/2024 8:38 AM EDT LAB Blood BLOOD SPECIMEN / Unknown Venipuncture / Unknown 10/19/2024 8:11 AM EDT 10/19/2024 8:14 AM EDT Narrative LAB - 10/19/2024 8:38 AM EDT [facility] has implemented the eGFR calculation approach that does not have a coefficient for race that conforms to the NKF-ASN Task Force Recommendations. Floyd Santiago DO LAB BLOOD ORDERABLES Final Result Performing Organization Address City/State/[facility] [[email or web address]] Co de Phone Number LAB [address] [place] [address] from Last 3 Months Insurance [facility] PPO Care Teams Corrections Cadet Relationship Specialty Start Date End Date Luis Felipe Briseno CNP PCP - General Nurse Practitioner 08/20/23
--- NOTE | 2024-12-13 21:17 | ED.SYNCOPE ---
HPI - Syncope General Chief Complaint: Syncope/Fainted Stated Complaint: Depression,Anxiety Time Seen by Provider: 12/13/24 20:23 Source: patient and EMS Mode of arrival: EMS Limitations: no limitations History of Present Illness HPI narrative: Patient is a 24-year-old female with history of POTS, atrial septal defect repair, and has an implantable loop recorder presenting to emergency department for an episode of syncope. She states she has a history of bradycardia and get syncope whenever she develops pain. States she was having some pelvic cramping with her menstrual period and then passed out while she was at [employer]. She is unsure how long she was out for or if she hit her head. She was told she had seizure-like activity. She does not know how long it took for her to get back to normal when she woke up. When EMS arrived she is bradycardic and hypotensive. They gave atropine and 500 mL of fluid. The time patient arrived to the emergency department she was asymptomatic. She states she feels back to normal. Does states she has been told she had seizure-like activity 1 other time when she had syncope. Denied chest pain, shortness of breath, headache, vision changes, weakness, numbness, abdominal pain, diarrhea, constipation. No other concerns noted at this time. Related Data Home Medications ?Medication ?Instructions ?Recorded ?Confirmed hydroxyzine HCl 10 mg tablet 5 - 10 mg PO Q8H PRN anxiety 07/10/24 07/11/24 lamotrigine 150 mg tablet 150 mg PO DAILY 07/10/24 07/10/24 lamotrigine 25 mg tablet 50 mg PO DAILY 07/10/24 07/10/24 lurasidone 60 mg tablet 60 mg PO QPM 07/10/24 07/10/24 Allergies Allergy/AdvReac Type Severity Reaction Status Date / Time No Known Drug Allergies Allergy Verified 05/11/22 00:12 Review of Systems Status of ROS: Reports: 10 or more systems reviewed and unremarkable except as noted in History and below [facility] Medical History Bradycardia ?R00.1 - Bradycardia, unspecified (ICD-10) 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 tricuspid insufficiency (ICD-10) 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 (ICD-10) Complete right bundle branch block ?I45.10 - Unspecified right bundle-branch block (ICD-10) Depression ?F32.A - Depression, unspecified (ICD-10) Anxiety ?F41.9 - Anxiety disorder, unspecified (ICD-10) Mitral regurgitation ?I34.0 - Nonrheumatic mitral (valve) insufficiency (ICD-10) POTS (postural orthostatic tachycardia syndrome) ?G90.A - Postural orthostatic tachycardia syndrome [POTS] (ICD-10) Surgical History H/O congenital atrial septal defect (ASD) repair ?Z87.74 - Personal history of (corrected) congenital malformations of heart and circulatory system (ICD-10) Social History Smoking Status: Never smoker Do you use any of these nicotine containing products: None Second hand tobacco smoke exposure: No How often do you have a drink containing alcohol: never How often do you have six or more drinks on one occasion: Never AUDIT-C Alcohol total score: 0 Non-prescribed substance use: denies use service: No Exam Narrative: Exam Narrative: Const: Well-nourished, Well-developed, in no distress Eyes: PERRL, no conjunctival injection, and symmetrical lids HENT: Atraumatic external nose and ears. Moist mucous membranes. Neck: Symmetric, trachea midline, No thyromegaly. CVS: Bradycardia, No murmurs or gallops. Peripheral pulses 2+ and equal in all extremities RESP: Unlabored respiratory effort. Clear to auscultation bilaterally. GI: Nontender/Nondistended, No rebound or guarding. MSK:Extremities w/o deformity, Normal Active ROM Skin: Warm, Dry. No rashes or lesions. Neuro: Normal Muscle tone, No focal neurological deficits. Psych: Awake, Alert, & Oriented x3. Appropriate mood and affect. Const: Vital Signs, click to edit/add: Vital Signs - 24 hr 12/13/24 20:29 12/13/24 21:44 Temperature 98.0 F Pulse Rate [Pulse Oximeter] 59 L 54 L Respiratory Rate 16 16 Blood Pressure [Le ft Upper Arm] 102/54 L 105/67 Pulse Oximetry 98 98 Oxygen Delivery Me thod Room Air Room Air Course Vital Signs Vital signs: Initial Vital Signs Temperature 98.0 F 12/13/24 20:29 Temperature Source Temporal Artery Scan 12/13/24 20:29 Pulse Rate 59 L 12/13/24 20:29 Pulse Rhythm Regular 12/13/24 20:29 Respiratory Rate 16 12/13/24 20:29 Blood Pressure 102/54 L 12/13/24 20:29 Blood Pressure Mean 70 12/13/24 20:29 Blood Pressure Position Supine 12/13/24 20:29 Pulse Oximetry 98 12/13/24 20:29 Oxygen Delivery Method Room Air 12/13/24 20:29 Vital Signs Temperature 98.0 F 12/13/24 20:29 Pulse Rate 59 L 12/13/24 20:29 Respiratory Rate 16 12/13/24 20:29 Blood Pressure 102/54 L 12/13/24 20:29 Pulse Oximetry 98 12/13/24 20:29 Oxygen Delivery Method Room Air 12/13/24 20:29 Temperature 98.0 F 12/13/24 20:29 Pulse Rate 54 L 12/13/24 21:44 Respiratory Rate 16 12/13/24 21:44 Blood Pressure 105/67 12/13/24 21:44 Pulse Oximetry 98 12/13/24 21:44 Oxygen Delivery Method Room Air 12/13/24 21:44 Medications Administered Medications: Generic Name Dose Route Start Last Admin Trade Name Freq PRN Reason Stop Dose Admin Acetaminophen 1,000 mg 12/13/24 21:53 12/13/24 21:55 Acetaminophen 500 Mg Tablet PO 12/13/24 21:54 1,000 mg ONCE ONE Administration MDM - Syncope MDM Narrative Medical decision making narrative: Patient is a 24-year-old female presenting to the emergency department for an episode of syncope. This is a known issue of hers. The bradycardia and hypertension noted when EMS arrived would be expected with syncope. She does report seizure-like activity but is unsure if there was any postictal state. They some her history this does seem most likely to be syncope related and not seizure related we will do CT scan of her head as she also does not know if she hit her head. Will also do an EKG. Patient is feeling well at this time. EKG shows no concerning abnormalities as interpreted by myself. Head CT had some motion artifact. There is questionable edema right temporal lobe although this could be all artifact. I have low clinical concern for significant intracranial pathology. There is also no signs of encephalitis. This is almost certainly a some incomplete episode. We did ambulate her and she did well. She was developing mild headache and Tylenol was given per the patient's request. Do believe she is safe for discharge. She is agreeable to this plan. Imaging Data CT scan - head: Attestation: I have reviewed the pertinent imaging results. Radiologist's impression: Mild motion and streak artifact degradation with questionable edema in the right temporal lobe, though this may be artifactual. Contrast-enhanced MRI would be recommended if there is continued clinical concern for significant intracranial pathology. If there is concern for encephalitis, such as herpes encephalitis, as an etiology for patient`s symptoms, lumbar puncture would be recommended. Please note that all CT scans at this facility use dose modulation, iterative reconstruction, and/or weight-based dosing when appropriate to reduce radiation dose to as low as reasonably achievable. Dictated by Que Bond MD @ 12/13/2024 9:24:30 PM ECG Data Attestation: I personally reviewed and interpreted this ECG as follows: Prior ECG tracings: available for review Interpretation: Normal sinus rhythm with a rate of 60 beats per minute, normal intervals, normal axis, no ST or T-wave abnormalities. Right bundle branch block. Appears similar previous EKGs on file Critical Care Time Critical Care Time Critical Care Time: No Discharge Plan Discharge Clinical Impression: Vasovagal syncope Patient Disposition: Home, Self-Care Condition: Stable Instructions: Syncope (ED) Additional Instructions: Continue to follow-up with your primary care provider and contracts representative. Return to emergency department for new or worsening symptoms. Prescriptions: No Action lamotrigine 150 mg tablet 150 mg PO DAILY lamotrigine 25 mg tablet 50 mg PO DAILY hydroxyzine HCl 10 mg tablet 5 - 10 mg PO Q8H PRN (Reason: anxiety) lurasidone 60 mg tablet 60 mg PO QPM Follow Up/Referrals: Provider,Not a Local [Primary Care Provider, Family Practice] Stand Alone Forms: [employer] Info Instructions
[2024-12-13 21:44] VITALS: BP 105/67; PULSE 54; RESP 16; O2SAT 98
[2024-12-13] MEDS: ACETAMINOPHEN 500 MG TABLET 1000 MG PO (21:55)
[2024-12-13 21:57] VITALS: BP 100/60; BP 100/64; BP 102/58; PULSE 52; PULSE 54; PULSE 58
== END 2024-12-13 22:11 | disposition home or self-care (01) ==
PROVIDERS: Emergency Provider Student in an Organized Health Care Education/Training Program
DX: R55 Syncope and collapse (principal); R00.1 Bradycardia, unspecified
CPT/HCPCS: 70450; 93005; 99284; 99285; A9270

== ENCOUNTER 2025-01-03 13:21 | Outpatient (CLI) | payer OTHER, SELFPAY | END 2025-01-03 13:22 | disposition home or self-care (01) | LOC: NFLDUCREF 13:22 | DX: Z79.899 Other long term (current) drug therapy (principal) | CPT/HCPCS: 80178 ==

== ENCOUNTER 2025-02-10 09:26 | Outpatient (CLI) | payer OTHER, SELFPAY | END 2025-02-10 09:27 | disposition home or self-care (01) | PROVIDERS: PCP Nurse Practitioner Family; Visit Provider Obstetrics & Gynecology | DX: R10.20 Pelvic and perineal pain unspecified side (principal); N39.0 Urinary tract infection, site not specified | CPT/HCPCS: 87086 ==

== ENCOUNTER 2025-02-10 10:43 | Outpatient (CLI) | payer OTHER, SELFPAY ==
--- NOTE | 2025-02-10 10:45 | CRLHL7_ITS ---
For Patients: As a result of the Century Cures Act, medical imaging exams and procedure reports are released immediately into your electronic medical record. You may view this report before your referring provider. If you have questions, please contact your health care provider. CLINICAL HISTORY: Pelvic and perineal pain COMPARISON: None. TECHNIQUE: 2D alainz-scale ultrasound. In addition, color Doppler and spectral Doppler analysis was performed of the pelvis using a transabdominal and transvaginal approach. Transvaginal imaging performed to better visualize the endometrial stripe and ovaries. FINDINGS: The myometrium has a normal uniform echotexture. The endometrial lining appears normal and measures 9 mm in thickness. The uterus measures 7.5 x 3.9 x 5.0 cm The right ovary measures 3.8 x 2.5 x 2.3 cm in size and the left ovary measures 3.1 x 1.9 x 1.7 cm. The ovaries demonstrate normal arterial and venous blood flow on color Doppler and spectral Doppler analysis. Moderate pelvic free fluid. Heterogeneous right ovarian cyst measures 2.2 x 1.5 x 2.4 cm. IMPRESSION: Moderate pelvic free fluid. No torsion. Likely collapsed right ovarian cyst measures 2.4 cm. Follow-up in 6 months recommended. Dictated by Andrew Jones MD @ 02/10/2025 12:22:16 PM (Electronically Signed)
== END 2025-02-10 10:44 | disposition home or self-care (01) ==
LOC: US 10:43
PROVIDERS: PCP Nurse Practitioner Family; Visit Provider Obstetrics & Gynecology
DX: R10.20 Pelvic and perineal pain unspecified side (principal); G89.29 Other chronic pain; N39.0 Urinary tract infection, site not specified
CPT/HCPCS: 76830; 76856; 87086; 93976